=== PATIENT | male | born 1965 | race Caucasian/White ===

== ENCOUNTER 2016-09-10 18:18 | Emergency (ER) | payer MEDICAID ==
[~2016-09-10] VITALS: Ht 182.9 cm; Wt 122.8 kg
[~2016-09-10 18:18] MED LIST: ALPR0.254 PO; ALPR2TAB2 PO; AMLO5TAB2 PO; CIPR500T87 PO; DAPT500V6 IV; DOXY100T PO; ESOM40CA PO; FOLI-17 PO; FURO40TA6 PO; INSU100V8 SQ; LACT10SO5 PO; LACT20SO13 PO; LISI-170 PO; LORA-445 PO; MAGN400T7 PO; METR500T PO; MILK500C PO; OXYC10TA32 PO; OXYC15TA PO; OXYC5TAB3 PO; RIFA550T PO; SPIR25TA3 PO; SPIR50TA PO; UBID1CAP24 PO; VIT E PO
[2016-09-10] MEDS ORDERED: SODIUM CHLORIDE FLUSH 10ML SYR IVF ONE (19:00)
[2016-09-10] MEDS ORDERED: ONDANSETRON 2MG/ML, 2ML IVPush ONE (19:00)
[2016-09-10 19:16] LABS: BLOOD UREA NITROGEN 10 mg/dL (7-18)
[2016-09-10 19:20] LABS: ASPARTATE AMINO TRANSFERASE 70 U/L (15-37)
[2016-09-10 19:36] LABS: ANISOCYTOSIS 1+
[2016-09-10 19:37] LABS: HYPOCHROMIA 1+; OVALOCYTES 1+; POLYCHROMASIA 1+
[2016-09-10] MEDS ORDERED: ONDANSETRON 2MG/ML, 2ML ONE (19:39)
[2016-09-10] MEDS ORDERED: HYDROmorphone 1 MG/ML, 1ML ONE ×2 (19:39→20:38)
[2016-09-10] MEDS: HYDROmorphone 1 MG/ML, 1ML IVPush PRN ×2 (19:55→20:40)
[2016-09-10] MEDS ORDERED: MILK150C2 PO (19:59)
[2016-09-10] MEDS ORDERED: VITA200C7 PO (19:59)
[2016-09-10 21:43] VITALS: BP 122/85
== END 2016-09-10 21:45 | disposition home or self-care (01) ==
LOC: ED 21:08
DX: K40.90 Unilateral inguinal hernia, without obstruction or gangrene, not specified as recurrent (principal); K70.31 Alcoholic cirrhosis of liver with ascites; I10 Essential (primary) hypertension; E11.9 Type 2 diabetes mellitus without complications
CPT/HCPCS: 36415; 76705; 80053; 85025; 85610; 85730; 96374; 96375; 96376; 99285; J1170; J2405

== ENCOUNTER 2016-11-16 20:38 | Emergency (ER) | payer MEDICAID ==
[~2016-11-16] VITALS: Ht 182.9 cm; Wt 113.0 kg
[~2016-11-16 20:38] MED LIST changes: +MILK150C2 PO; +VITA200C7 PO
[2016-11-16] MEDS ORDERED: SODIUM CHLORIDE FLUSH 10ML SYR IVF ONE (21:00)
[2016-11-16 21:21] LABS: ASPARTATE AMINO TRANSFERASE 69 U/L (15-37); BLOOD UREA NITROGEN 8 mg/dL (7-18)
[2016-11-16] MEDS ORDERED: ONDANSETRON 2MG/ML, 2ML ONE (21:40)
[2016-11-16] MEDS ORDERED: LIDOCAINE 1%, 20ML ONE (21:54)
[2016-11-16] MEDS ORDERED: ONDANSETRON 2MG/ML, 2ML IVPush ONE (22:00)
[2016-11-16 23:01] VITALS: BP 148/90
== END 2016-11-16 23:32 | disposition home or self-care (01) ==
LOC: ED 23:00
DX: Z76.0 Encounter for issue of repeat prescription (principal); R06.00 Dyspnea, unspecified; K70.31 Alcoholic cirrhosis of liver with ascites; I10 Essential (primary) hypertension; E11.9 Type 2 diabetes mellitus without complications; K21.9 Gastro-esophageal reflux disease without esophagitis; B19.20 Unspecified viral hepatitis C without hepatic coma; Z88.8 Allergy status to other drugs, medicaments and biological substances; Z79.899 Other long term (current) drug therapy
CPT/HCPCS: 36415; 49083; 71010; 80053; 83880; 85025; 85610; 85730; 93005; 96374; 99285; J2405; J3490

== ENCOUNTER 2017-01-01 20:14 | Inpatient (IN) | payer MEDICAID ==
[~2017-01-01] VITALS: Ht 182.9 cm; Wt 114.1 kg
[~2017-01-01 20:14] MED LIST changes: -OXYC10TA32 PO; +OXYC10TA47 PO; -RIFA550T PO; +RIFA550T4 PO; -UBID1CAP24 PO; +UBID1CAP43 PO
[2017-01-01] MEDS ORDERED: FUROSEMIDE 40 MG/4 ML IV ONE (21:30)
[2017-01-01 21:50] LABS: HEMATOCRIT 40.2 % (39.2-51.8); HEMOGLOBIN 12.9 g/dL (13.7-18.0); WHITE BLOOD COUNT 4.6 x10^3/uL (3.4-10)
[2017-01-01 21:53] LABS: ASPARTATE AMINO TRANSFERASE 64 U/L (15-37); BLOOD UREA NITROGEN 9 mg/dL (7-18)
[2017-01-01] MEDS ORDERED: FUROSEMIDE 40 MG/4 ML ONE (22:21)
[2017-01-01] MEDS ORDERED: LIDOCAINE 1%, 20ML ONE (22:28)
[2017-01-02] MEDS ORDERED: ONDANSETRON 2MG/ML, 2ML IVPush PRN (01:00)
[2017-01-02] MEDS ORDERED: ONDANSETRON ODT 4 MG PO PRN (01:00)
[2017-01-02] MEDS ORDERED: LABETALOL 5MG/ML, 20ML IVPush PRN (01:00)
[2017-01-02] MEDS: HEPARIN 5,000 UNITS/ML, 1ML SQ SCH ×3 (02:12→16:55)
[2017-01-02 02:22] VITALS: BP 119/74
[2017-01-02] MEDS: ALBUMIN HUMAN 25% 100 ML IV SCH ×3 (02:50→19:00)
[2017-01-02 06:57] VITALS: BP 130/90
[2017-01-02] MEDS: SENNA/DOCUSATE TABLET PO SCH (09:00)
[2017-01-02] MEDS: LACTULOSE 10 GM/15 ML UDC PO SCH ×2 (09:00→21:12)
[2017-01-02] MEDS ORDERED: FUROSEMIDE 40 MG/4 ML IV SCH (09:00)
[2017-01-02] MEDS: SPIRONOLACTONE 50 MG TABLET PO SCH ×2 (09:05→21:12)
[2017-01-02 14:19] VITALS: BP 112/74
[2017-01-02] MEDS ORDERED: ALBUMIN HUMAN 25% 100 ML IV ONE (16:00)
[2017-01-02 19:55] VITALS: BP 113/70
[2017-01-02] MEDS: OXYcodone IR 5MG TABLET PO PRN (21:10)
[2017-01-02] MEDS: FUROSEMIDE 40 MG/4 ML IV SCH (21:13)
[2017-01-03] MEDS: HEPARIN 5,000 UNITS/ML, 1ML SQ SCH ×3 (01:00→16:07)
[2017-01-03 01:34] VITALS: BP 116/67
[2017-01-03] MEDS: ALBUMIN HUMAN 25% 100 ML IV SCH ×2 (03:33→11:56)
[2017-01-03 05:18] LABS: HEMATOCRIT 37.5 % (39.2-51.8); HEMOGLOBIN 12.2 g/dL (13.7-18.0)
[2017-01-03 05:59] LABS: ASPARTATE AMINO TRANSFERASE 50 U/L (15-37); BLOOD UREA NITROGEN 13 mg/dL (7-18); TOTAL IRON BINDING CAPACITY 275 mcg/dL (250-450)
[2017-01-03] MEDS: LACTULOSE 10 GM/15 ML UDC PO SCH ×2 (08:50→21:00)
[2017-01-03] MEDS: FUROSEMIDE 40 MG/4 ML IV SCH (08:50)
[2017-01-03] MEDS: SPIRONOLACTONE 50 MG TABLET PO SCH ×2 (08:50→22:20)
[2017-01-03] MEDS: SENNA/DOCUSATE TABLET PO SCH (08:50)
[2017-01-03 09:09] VITALS: BP 117/74
[2017-01-03] MEDS: OXYcodone IR 5MG TABLET PO PRN ×2 (11:56→20:55)
[2017-01-03 13:47] VITALS: BP 121/73
[2017-01-03 19:24] VITALS: BP 118/76
[2017-01-04] MEDS: HEPARIN 5,000 UNITS/ML, 1ML SQ SCH ×4 (01:00→23:16)
[2017-01-04 01:49] VITALS: BP 117/77
[2017-01-04] MEDS: OXYcodone IR 5MG TABLET PO PRN ×3 (04:42→23:20)
[2017-01-04 05:06] LABS: HEMATOCRIT 37.9 % (39.2-51.8); HEMOGLOBIN 12.1 g/dL (13.7-18.0); WHITE BLOOD COUNT 3.8 x10^3/uL (3.4-10)
[2017-01-04 05:10] LABS: BLOOD UREA NITROGEN 15 mg/dL (7-18)
[2017-01-04 05:13] LABS: ASPARTATE AMINO TRANSFERASE 49 U/L (15-37)
[2017-01-04] MEDS: SENNA/DOCUSATE TABLET PO SCH (07:34)
[2017-01-04] MEDS: LACTULOSE 10 GM/15 ML UDC PO SCH ×2 (07:34→21:00)
[2017-01-04 07:35] VITALS: BP 120/76
[2017-01-04] MEDS: FUROSEMIDE 40 MG TABLET PO SCH (09:12)
[2017-01-04] MEDS: SPIRONOLACTONE 50 MG TABLET PO SCH ×2 (09:12→23:20)
[2017-01-04] MEDS: IRON SUCROSE COMPLEX 100MG/5ML IV SCH (09:12)
[2017-01-04 13:38] VITALS: BP 112/71
[2017-01-04] MEDS ORDERED: LIDOCAINE 2%, 20ML ONE (15:08)
[2017-01-04 20:22] VITALS: BP 116/71
[2017-01-05 08:17] LABS: ASPARTATE AMINO TRANSFERASE 63 U/L (15-37); BLOOD UREA NITROGEN 15 mg/dL (7-18)
[2017-01-05 08:19] LABS: HEMOGLOBIN 12.9 g/dL (13.7-18.0); WHITE BLOOD COUNT 4.3 x10^3/uL (3.4-10)
[2017-01-05 08:25] VITALS: BP 105/64
[2017-01-05] MEDS: HEPARIN 5,000 UNITS/ML, 1ML SQ SCH ×2 (09:00→17:00)
[2017-01-05] MEDS: LACTULOSE 10 GM/15 ML UDC PO SCH ×2 (09:00→20:57)
[2017-01-05] MEDS: SENNA/DOCUSATE TABLET PO SCH (09:00)
[2017-01-05] MEDS: SPIRONOLACTONE 50 MG TABLET PO SCH ×2 (10:21→20:56)
[2017-01-05] MEDS: IRON SUCROSE COMPLEX 100MG/5ML IV SCH (10:21)
[2017-01-05] MEDS: FUROSEMIDE 40 MG TABLET PO SCH (10:21)
[2017-01-05 13:05] VITALS: BP 116/72
[2017-01-05] MEDS ORDERED: FUROSEMIDE 40 MG/4 ML IV ONE (15:30)
[2017-01-05] MEDS: OXYcodone IR 5MG TABLET PO PRN (16:51)
[2017-01-05] MEDS: ALBUMIN HUMAN 25% 100 ML IV SCH ×2 (16:52→23:51)
[2017-01-05 22:04] VITALS: BP 106/69
[2017-01-06] MEDS: HEPARIN 5,000 UNITS/ML, 1ML SQ SCH ×3 (01:00→17:00)
[2017-01-06] MEDS: FUROSEMIDE 20 MG/2 ML IV SCH ×3 (01:35→16:00)
[2017-01-06 04:06] VITALS: BP 110/67
[2017-01-06 05:11] LABS: HEMATOCRIT 36.6 % (39.2-51.8); HEMOGLOBIN 11.8 g/dL (13.7-18.0); WHITE BLOOD COUNT 3.6 x10^3/uL (3.4-10)
[2017-01-06 05:28] LABS: ASPARTATE AMINO TRANSFERASE 48 U/L (15-37); BLOOD UREA NITROGEN 16 mg/dL (7-18)
[2017-01-06 08:31] VITALS: BP 136/88
[2017-01-06] MEDS: LACTULOSE 10 GM/15 ML UDC PO SCH (09:00)
[2017-01-06] MEDS: SENNA/DOCUSATE TABLET PO SCH (09:00)
[2017-01-06] MEDS: OXYcodone IR 5MG TABLET PO PRN ×2 (10:11→15:49)
[2017-01-06] MEDS: IRON SUCROSE COMPLEX 100MG/5ML IV SCH (10:12)
[2017-01-06] MEDS: ALBUMIN HUMAN 25% 100 ML IV SCH ×2 (10:12→15:49)
[2017-01-06] MEDS: SPIRONOLACTONE 50 MG TABLET PO SCH (10:12)
[2017-01-06 17:16] VITALS: BP 133/65
== END 2017-01-06 17:30 | disposition home or self-care (01) | DRG 432 ==
LOC: ED 21:03 → EDIP 01-02 00:33 → 4NOR 01-02 01:15
PROVIDERS: ADMIT Hospitalist; ATTEND Hospitalist
PROC: 0W9G3ZZ Drainage of Peritoneal Cavity, Percutaneous Approach (ICD-10-PCS; principal; 2017-01-02)
DX: K74.60 Unspecified cirrhosis of liver (principal); E43 Unspecified severe protein-calorie malnutrition; R18.8 Other ascites; D68.9 Coagulation defect, unspecified; K76.6 Portal hypertension; E11.65 Type 2 diabetes mellitus with hyperglycemia; E87.1 Hypo-osmolality and hyponatremia; J98.11 Atelectasis; D69.59 Other secondary thrombocytopenia; B19.20 Unspecified viral hepatitis C without hepatic coma; D53.9 Nutritional anemia, unspecified; D75.89 Other specified diseases of blood and blood-forming organs; F12.90 Cannabis use, unspecified, uncomplicated; M54.9 Dorsalgia, unspecified; G89.29 Other chronic pain; I10 Essential (primary) hypertension; K21.9 Gastro-esophageal reflux disease without esophagitis; N43.3 Hydrocele, unspecified; N50.89 Other specified disorders of the male genital organs; Z66 Do not resuscitate; Z80.41 Family history of malignant neoplasm of ovary; Z68.34 Body mass index [BMI] 34.0-34.9, adult; Z83.3 Family history of diabetes mellitus; Z85.828 Personal history of other malignant neoplasm of skin
CPT/HCPCS: 36415; 49083; 74022; 76870; 80053; 82140; 82306; 82607; 82728; 82746; 83540; 83550; 83690; 84439; 84443; 85025; 85610; 93005; 96374; J1756; J1940; J3490; P9047

== ENCOUNTER 2017-01-15 22:38 | Emergency (ER) | payer MEDICAID ==
[~2017-01-15] VITALS: Ht 182.9 cm; Wt 113.3 kg
[2017-01-15] MEDS ORDERED: SODIUM CHLORIDE FLUSH 10ML SYR IVF ONE (23:30)
[2017-01-16 01:07] VITALS: BP 135/90
== END 2017-01-16 01:51 | disposition home or self-care (01) ==
LOC: ED 23:18
DX: R10.84 Generalized abdominal pain (principal); K70.31 Alcoholic cirrhosis of liver with ascites; K21.9 Gastro-esophageal reflux disease without esophagitis; I10 Essential (primary) hypertension; E11.9 Type 2 diabetes mellitus without complications; G89.29 Other chronic pain
CPT/HCPCS: 49083; 93005; 99284

== ENCOUNTER 2017-02-23 20:45 | Emergency (ER) | payer MEDICAID ==
[~2017-02-23] VITALS: Ht 177.8 cm; Wt 130.5 kg
[2017-02-23] MEDS ORDERED: ONDANSETRON 2MG/ML, 2ML IVPush ONE (22:30)
[2017-02-23] MEDS ORDERED: MORPHINE SULFATE 4 MG/ML, 1ML IVPush PRN (22:30)
[2017-02-23] MEDS ORDERED: SODIUM CHLORIDE FLUSH 10ML SYR IVF ONE (22:30)
[2017-02-23] MEDS ORDERED: ONDANSETRON 2MG/ML, 2ML ONE (22:35)
[2017-02-23] MEDS ORDERED: morphine SULFATE 10 MG/ML, 1ML ONE (22:35)
[2017-02-23 22:42] LABS: HEMATOCRIT 40.3 % (39.2-51.8); HEMOGLOBIN 13.4 g/dL (13.7-18.0); WHITE BLOOD COUNT 7.8 x10^3/uL (3.4-10)
[2017-02-23 22:50] LABS: ASPARTATE AMINO TRANSFERASE 68 U/L (15-37); BLOOD UREA NITROGEN 9 mg/dL (7-18)
[2017-02-24] MEDS ORDERED: LIDOCAINE 1%, 20ML INFIL ONE (01:00)
[2017-02-24] MEDS ORDERED: LIDOCAINE 1%, 20ML ONE (01:20)
[2017-02-24] MEDS ORDERED: ONDANSETRON 2MG/ML, 2ML ONE (02:34)
[2017-02-24 04:05] VITALS: BP 137/89
== END 2017-02-24 04:17 | disposition home or self-care (01) ==
LOC: ED 22:18
DX: K76.89 Other specified diseases of liver (principal); D68.4 Acquired coagulation factor deficiency; D69.6 Thrombocytopenia, unspecified; R18.8 Other ascites; E11.65 Type 2 diabetes mellitus with hyperglycemia; K21.9 Gastro-esophageal reflux disease without esophagitis
CPT/HCPCS: 36415; 49083; 71010; 80053; 81001; 83690; 83880; 85025; 85610; 85730; 87086; 96374; 96375; 99285; J2405

== ENCOUNTER 2017-03-29 15:49 | Emergency (ER) | payer MEDICAID ==
[~2017-03-29] VITALS: Ht 182.9 cm; Wt 126.4 kg
[2017-03-29] MEDS ORDERED: SPIR25TA3 PO (16:13)
[2017-03-29] MEDS ORDERED: POTA25TA4 PO (16:14)
[2017-03-29] MEDS ORDERED: LIDOCAINE 2%, 20ML ONE (16:36)
[2017-03-29] MEDS ORDERED: HYDROmorphone 1 MG/ML, 1ML IVPush ONE (17:00)
[2017-03-29] MEDS ORDERED: HYDROmorphone 1 MG/ML, 1ML ONE (17:02)
[2017-03-29 17:59] VITALS: BP 129/79
== END 2017-03-29 18:46 | disposition home or self-care (01) ==
LOC: ED 16:39
DX: K70.31 Alcoholic cirrhosis of liver with ascites (principal); E11.9 Type 2 diabetes mellitus without complications; I10 Essential (primary) hypertension; K21.9 Gastro-esophageal reflux disease without esophagitis
CPT/HCPCS: 49083; 96374; 99284; J1170; J3490

== ENCOUNTER 2017-04-07 21:51 | Emergency (ER) | payer MEDICAID ==
[~2017-04-07] VITALS: Ht 182.9 cm; Wt 127.9 kg
[~2017-04-07 21:51] MED LIST changes: +POTA25TA4 PO
[2017-04-07 23:10] LABS: ASPARTATE AMINO TRANSFERASE 66 U/L (15-37); BLOOD UREA NITROGEN 9 mg/dL (7-18)
[2017-04-07 23:15] LABS: HEMATOCRIT 37.5 % (39.2-51.8); HEMOGLOBIN 12.7 g/dL (13.7-18.0); WHITE BLOOD COUNT 4.2 x10^3/uL (3.4-10)
[2017-04-08] MEDS ORDERED: HYDROmorphone 1 MG/ML, 1ML IM ONE
[2017-04-08] MEDS ORDERED: KETOROLAC 30 MG/1 ML IM ONE
[2017-04-08] MEDS ORDERED: HYDROmorphone 1 MG/ML, 1ML ONE (00:10)
[2017-04-08] MEDS ORDERED: KETOROLAC 30 MG/1 ML ONE (00:11)
[2017-04-08 01:59] VITALS: BP 122/84
[2017-04-08] MEDS ORDERED: SULFAMETH./TRIMETHOPRIM DS 800MG/160MG TABLET PO ONE (03:30)
== END 2017-04-08 04:01 | disposition home or self-care (01) ==
LOC: ED 23:36
DX: N49.2 Inflammatory disorders of scrotum (principal); N43.3 Hydrocele, unspecified; D69.6 Thrombocytopenia, unspecified; E11.9 Type 2 diabetes mellitus without complications; I10 Essential (primary) hypertension; K21.9 Gastro-esophageal reflux disease without esophagitis
CPT/HCPCS: 36415; 76870; 80053; 83605; 85025; 87040; 87077; 96372; 99285; J1170; J1885; 87186

== ENCOUNTER 2017-04-08 21:30 | Inpatient (IN) | payer MEDICAID ==
[~2017-04-08] VITALS: Ht 182.9 cm; Wt 124.0 kg
[2017-04-08] MEDS ORDERED: AMPICILLIN/SULBACTAM 3 GM in SODIUM CHLORIDE 0.9% 100 ML IV ONE (22:30)
[2017-04-08] MEDS ORDERED: VANCOMYCIN 2,500 MG in SODIUM CHLORIDE 0.9% 500 ML IV ONE (23:00)
[2017-04-08] MEDS ORDERED: VANCOMYCIN PER PHARMACY MC PRN (23:00)
[2017-04-08 23:08] LABS: HEMOGLOBIN 12.5 g/dL (13.7-18.0); WHITE BLOOD COUNT 4.5 x10^3/uL (3.4-10)
[2017-04-08 23:15] LABS: ASPARTATE AMINO TRANSFERASE 67 U/L (15-37); BLOOD UREA NITROGEN 13 mg/dL (7-18)
[2017-04-09] MEDS ORDERED: VANCOMYCIN PER PHARMACY MC PRN
[2017-04-09] MEDS ORDERED: POLYETHYLENE GLYCOL 17 GM PACKET PO PRN
[2017-04-09] MEDS ORDERED: PHARMACOKINETIC MONITORING MC PRN (01:30)
[2017-04-09] MEDS: OXYcodone IR 5MG TABLET PO PRN ×5 (02:02→20:36)
[2017-04-09 05:27] LABS: HEMATOCRIT 36.4 % (39.2-51.8); HEMOGLOBIN 12.4 g/dL (13.7-18.0); WHITE BLOOD COUNT 4.6 x10^3/uL (3.4-10)
[2017-04-09 05:50] LABS: BLOOD UREA NITROGEN 12 mg/dL (7-18)
[2017-04-09] MEDS: AMPICILLIN/SULBACTAM 3 GM in SODIUM CHLORIDE 0.9% 100 ML IV SCH ×3 (06:18→22:39)
[2017-04-09 06:32] LABS: DIFF TOTAL CELLS COUNTED 100 CELL DIFF
[2017-04-09 06:35] LABS: VERIFY COUNTS? YES
[2017-04-09 06:37] LABS: ANISOCYTOSIS 1+; OVALOCYTES 2+
[2017-04-09] MEDS ORDERED: MILK THISTLE 150 MG PO SCH (09:00)
[2017-04-09] MEDS: VITAMIN E ACETATE HOMEMEDPO SCH (09:00)
[2017-04-09] MEDS: SPIRONOLACTONE 50 MG TABLET PO SCH ×3 (09:00→20:35)
[2017-04-09] MEDS: ENOXAPARIN 40 MG/0.4 ML SQ SCH (09:00)
[2017-04-09 09:55] VITALS: BP 104/68
[2017-04-09] MEDS: FUROSEMIDE 40 MG TABLET PO SCH (10:52)
[2017-04-09] MEDS: K-LYTE 25 MEQ TABLET.EFF PO SCH (10:52)
[2017-04-09] MEDS: ONDANSETRON ODT 4 MG PO PRN (15:01)
[2017-04-09] MEDS: VANCOMYCIN 2,500 MG in SODIUM CHLORIDE 0.9% 500 ML IV SCH ×2 (16:17→19:30)
[2017-04-09 19:13] VITALS: BP 138/90
[2017-04-09] MEDS: DIPHENHYDRAMINE 25 MG CAPSULE PO PRN (20:36)
[2017-04-10 01:41] VITALS: BP 123/69
[2017-04-10 04:12] LABS: BLOOD UREA NITROGEN 12 mg/dL (7-18)
[2017-04-10 04:39] LABS: HEMATOCRIT 35.6 % (39.2-51.8); WHITE BLOOD COUNT 3.5 x10^3/uL (3.4-10)
[2017-04-10] MEDS: AMPICILLIN/SULBACTAM 3 GM in SODIUM CHLORIDE 0.9% 100 ML IV SCH (06:14)
[2017-04-10] MEDS: VANCOMYCIN 2,500 MG in SODIUM CHLORIDE 0.9% 500 ML IV SCH ×2 (08:08→20:11)
[2017-04-10] MEDS: SPIRONOLACTONE 50 MG TABLET PO SCH ×2 (08:09→20:09)
[2017-04-10] MEDS: K-LYTE 25 MEQ TABLET.EFF PO SCH (08:10)
[2017-04-10] MEDS: FUROSEMIDE 40 MG TABLET PO SCH (08:10)
[2017-04-10] MEDS: ENOXAPARIN 40 MG/0.4 ML SQ SCH (08:11)
[2017-04-10] MEDS: ONDANSETRON ODT 4 MG PO PRN (08:19)
[2017-04-10] MEDS: VITAMIN E ACETATE HOMEMEDPO SCH (09:00)
[2017-04-10] MEDS: BUMETANIDE 0.25 MG/ML, 4ML IV SCH (13:00)
[2017-04-10] MEDS ORDERED: ALBUMIN HUMAN 25% 50 ML IV ONE (13:00)
[2017-04-10 13:24] VITALS: BP 115/72
[2017-04-10] MEDS ORDERED: AMPICILLIN/SULBACTAM 3 GM in SODIUM CHLORIDE 0.9% 100 ML IV SCH (14:00)
[2017-04-10] MEDS: CEFTRIAXONE PMX 1GM/50ML 50 ML IV SCH (14:38)
[2017-04-10] MEDS: OXYcodone IR 5MG TABLET PO PRN ×2 (15:32→20:23)
[2017-04-10] MEDS: MAGNESIUM OXIDE 400 MG TABLET PO SCH (20:10)
[2017-04-10 20:16] VITALS: BP 107/76
[2017-04-11] MEDS: OXYcodone IR 5MG TABLET PO PRN ×4 (00:52→23:33)
[2017-04-11] MEDS: DIPHENHYDRAMINE 25 MG CAPSULE PO PRN ×2 (00:52→08:30)
[2017-04-11 02:20] VITALS: BP 127/86
[2017-04-11] MEDS: VANCOMYCIN 2,500 MG in SODIUM CHLORIDE 0.9% 500 ML IV SCH (07:24)
[2017-04-11 08:16] VITALS: BP 133/84
[2017-04-11] MEDS: ENOXAPARIN 40 MG/0.4 ML SQ SCH ×2 (08:31→08:41)
[2017-04-11] MEDS: MAGNESIUM OXIDE 400 MG TABLET PO SCH ×2 (08:31→23:33)
[2017-04-11] MEDS: SPIRONOLACTONE 50 MG TABLET PO SCH ×2 (08:31→21:00)
[2017-04-11] MEDS: BUMETANIDE 0.25 MG/ML, 4ML IV SCH ×3 (08:32→20:00)
[2017-04-11] MEDS: VITAMIN E ACETATE HOMEMEDPO SCH (08:33)
[2017-04-11] MEDS: K-LYTE 25 MEQ TABLET.EFF PO SCH (08:33)
[2017-04-11] MEDS: ALBUMIN HUMAN 25% 50 ML IV SCH ×2 (12:13→19:59)
[2017-04-11] MEDS: CEFTRIAXONE PMX 1GM/50ML 50 ML IV SCH (13:38)
[2017-04-11 14:16] VITALS: BP 125/76
[2017-04-12 02:01] VITALS: BP 115/85
[2017-04-12] MEDS: BUMETANIDE 0.25 MG/ML, 4ML IV SCH (03:00)
[2017-04-12] MEDS: ALBUMIN HUMAN 25% 50 ML IV SCH (03:19)
[2017-04-12] MEDS: DIPHENHYDRAMINE 25 MG CAPSULE PO PRN ×3 (03:30→21:13)
[2017-04-12] MEDS: OXYcodone IR 5MG TABLET PO PRN ×4 (03:30→21:13)
[2017-04-12 06:12] LABS: HEMATOCRIT 33.8 % (39.2-51.8); HEMOGLOBIN 11.4 g/dL (13.7-18.0)
[2017-04-12 06:21] LABS: ASPARTATE AMINO TRANSFERASE 48 U/L (15-37); BLOOD UREA NITROGEN 11 mg/dL (7-18)
[2017-04-12] MEDS ORDERED: MAGNESIUM SULFATE PMX 2GM/50ML 50 ML IV ONE (07:00)
[2017-04-12] MEDS ORDERED: POTASSIUM CHLORIDE 20 MEQ TAB.ER.PRT PO ONE (07:00)
[2017-04-12] MEDS ORDERED: ALBUMIN HUMAN 25% 50 ML IV ONE (07:00)
[2017-04-12] MEDS: ENOXAPARIN 40 MG/0.4 ML SQ SCH ×2 (07:52→07:58)
[2017-04-12] MEDS: FUROSEMIDE 40 MG TABLET PO SCH (07:52)
[2017-04-12] MEDS: SPIRONOLACTONE 50 MG TABLET PO SCH (07:52)
[2017-04-12] MEDS: MAGNESIUM OXIDE 400 MG TABLET PO SCH ×2 (07:52→21:13)
[2017-04-12] MEDS: VITAMIN E ACETATE HOMEMEDPO SCH (07:58)
[2017-04-12 09:20] VITALS: BP 105/70
[2017-04-12] MEDS: CEFTRIAXONE PMX 1GM/50ML 50 ML IV SCH (13:17)
[2017-04-12] MEDS ORDERED: LIDOCAINE 2%, 20ML ONE (13:24)
[2017-04-12 15:55] VITALS: BP 121/79
[2017-04-12 20:08] VITALS: BP 120/74
[2017-04-13 01:16] VITALS: BP 115/74
[2017-04-13 06:21] LABS: BLOOD UREA NITROGEN 9 mg/dL (7-18)
[2017-04-13] MEDS: DIPHENHYDRAMINE 25 MG CAPSULE PO PRN ×3 (07:42→21:46)
[2017-04-13] MEDS: OXYcodone IR 5MG TABLET PO PRN ×3 (07:42→21:46)
[2017-04-13] MEDS: FUROSEMIDE 40 MG TABLET PO SCH (07:42)
[2017-04-13] MEDS: MAGNESIUM OXIDE 400 MG TABLET PO SCH ×2 (07:43→21:46)
[2017-04-13] MEDS: ENOXAPARIN 40 MG/0.4 ML SQ SCH ×2 (07:43→07:47)
[2017-04-13] MEDS: SPIRONOLACTONE 50 MG TABLET PO SCH (07:43)
[2017-04-13] MEDS: VITAMIN E ACETATE HOMEMEDPO SCH (07:43)
[2017-04-13 07:44] VITALS: BP 118/84
[2017-04-13] MEDS ORDERED: POTASSIUM CHLORIDE 20 MEQ TAB.ER.PRT PO ONE (12:00)
[2017-04-13] MEDS ORDERED: MAGNESIUM SULFATE PMX 4GM/100M 100 ML IV ONE (12:00)
[2017-04-13] MEDS: CEFTRIAXONE PMX 1GM/50ML 50 ML IV SCH (12:17)
[2017-04-13 13:38] VITALS: BP 109/70
[2017-04-13] MEDS ORDERED: LIDOCAINE 2%, 20ML ONE (14:48)
[2017-04-13 19:56] VITALS: BP 116/73
[2017-04-14 01:11] VITALS: BP 134/70
[2017-04-14] MEDS: OXYcodone IR 5MG TABLET PO PRN ×4 (02:13→18:41)
[2017-04-14] MEDS: DIPHENHYDRAMINE 25 MG CAPSULE PO PRN (06:43)
[2017-04-14 07:35] VITALS: BP 121/79
[2017-04-14 07:53] LABS: BLOOD UREA NITROGEN 10 mg/dL (7-18)
[2017-04-14 07:56] LABS: ASPARTATE AMINO TRANSFERASE 65 U/L (15-37)
[2017-04-14] MEDS: VITAMIN E ACETATE HOMEMEDPO SCH (09:00)
[2017-04-14] MEDS: ENOXAPARIN 40 MG/0.4 ML SQ SCH (09:00)
[2017-04-14] MEDS: FUROSEMIDE 40 MG TABLET PO SCH (09:16)
[2017-04-14] MEDS: MAGNESIUM OXIDE 400 MG TABLET PO SCH ×2 (09:17→20:09)
[2017-04-14] MEDS: SPIRONOLACTONE 50 MG TABLET PO SCH (09:17)
[2017-04-14] MEDS ORDERED: MAGNESIUM SULFATE PMX 2GM/50ML 50 ML IV ONE (12:30)
[2017-04-14] MEDS: CEFTRIAXONE PMX 1GM/50ML 50 ML IV SCH (13:40)
[2017-04-14 13:58] VITALS: BP 115/74
[2017-04-14] MEDS: ALBUMIN HUMAN 25% 100 ML IV SCH ×2 (14:28→20:11)
[2017-04-14] MEDS: TRIAMCINOLONE CRM 0.1%, 15GM TP PRN (16:28)
[2017-04-14] MEDS: FUROSEMIDE 40 MG/4 ML IV SCH (18:41)
[2017-04-14] MEDS ORDERED: POTASSIUM CHLORIDE 20 MEQ TAB.ER.PRT PO ONE (19:30)
[2017-04-14] MEDS ORDERED: MAGNESIUM SULFATE PMX 4GM/100M 100 ML IV ONE (19:30)
[2017-04-14 19:51] VITALS: BP 124/71
[2017-04-14] MEDS: POTASSIUM CHLORIDE 20 MEQ TAB.ER.PRT PO ONE (21:57)
[2017-04-14] MEDS: TEMAZEPAM 15 MG CAPSULE PO PRN (22:43)
[2017-04-15] MEDS: FUROSEMIDE 40 MG/4 ML IV SCH ×4 (00:07→18:37)
[2017-04-15] MEDS: OXYcodone IR 5MG TABLET PO PRN ×5 (00:07→20:33)
[2017-04-15] MEDS: POTASSIUM CHLORIDE 20 MEQ TAB.ER.PRT PO ONE (00:08)
[2017-04-15 00:56] VITALS: BP 137/89
[2017-04-15] MEDS: ALBUMIN HUMAN 25% 100 ML IV SCH ×3 (02:21→18:38)
[2017-04-15 06:06] VITALS: BP 116/73
[2017-04-15 06:21] LABS: BLOOD UREA NITROGEN 12 mg/dL (7-18)
[2017-04-15] MEDS: VITAMIN E ACETATE HOMEMEDPO SCH (07:44)
[2017-04-15] MEDS: ENOXAPARIN 40 MG/0.4 ML SQ SCH (07:44)
[2017-04-15] MEDS: MAGNESIUM OXIDE 400 MG TABLET PO SCH ×2 (08:24→20:33)
[2017-04-15] MEDS: AcetaZOLAMIDE ER 500 MG CAPSULE PO SCH ×2 (10:20→20:33)
[2017-04-15] MEDS: TRIAMCINOLONE CRM 0.1%, 15GM TP PRN (13:19)
[2017-04-15] MEDS: CEFTRIAXONE PMX 1GM/50ML 50 ML IV SCH (13:19)
[2017-04-15 14:30] VITALS: BP 108/59
[2017-04-15 20:36] VITALS: BP 103/63
[2017-04-16] MEDS: ALBUMIN HUMAN 25% 100 ML IV SCH ×4 (00:35→18:34)
[2017-04-16 00:41] VITALS: BP 117/70
[2017-04-16] MEDS: FUROSEMIDE 40 MG/4 ML IV SCH ×4 (02:32→20:48)
[2017-04-16] MEDS: TEMAZEPAM 15 MG CAPSULE PO PRN (03:28)
[2017-04-16 06:41] LABS: BLOOD UREA NITROGEN 18 mg/dL (7-18)
[2017-04-16 07:36] VITALS: BP 113/69
[2017-04-16] MEDS: VITAMIN E ACETATE HOMEMEDPO SCH (08:24)
[2017-04-16] MEDS: ENOXAPARIN 40 MG/0.4 ML SQ SCH (09:00)
[2017-04-16] MEDS: POTASSIUM CHLORIDE 20 MEQ TAB.ER.PRT PO SCH ×2 (09:26→14:47)
[2017-04-16] MEDS: MAGNESIUM CHLORIDE 64 MG TABLET.DR PO SCH ×2 (09:26→20:47)
[2017-04-16] MEDS: AcetaZOLAMIDE ER 500 MG CAPSULE PO SCH ×2 (09:26→20:48)
[2017-04-16] MEDS: OXYcodone IR 5MG TABLET PO PRN (09:37)
[2017-04-16 14:44] VITALS: BP 110/66
[2017-04-16] MEDS: CEFTRIAXONE PMX 1GM/50ML 50 ML IV SCH (14:47)
[2017-04-16 20:46] VITALS: BP 102/64
[2017-04-17] MEDS: ALBUMIN HUMAN 25% 100 ML IV SCH ×5 (00:33→18:06)
[2017-04-17 00:37] VITALS: BP 118/68
[2017-04-17] MEDS: FUROSEMIDE 40 MG/4 ML IV SCH ×4 (02:32→20:39)
[2017-04-17 07:25] VITALS: BP 102/61
[2017-04-17] MEDS: VITAMIN E ACETATE HOMEMEDPO SCH (08:33)
[2017-04-17] MEDS: AcetaZOLAMIDE ER 500 MG CAPSULE PO SCH (09:00)
[2017-04-17] MEDS: ENOXAPARIN 40 MG/0.4 ML SQ SCH (09:00)
[2017-04-17 09:22] VITALS: BP 98/57
[2017-04-17] MEDS: MAGNESIUM CHLORIDE 64 MG TABLET.DR PO SCH ×2 (09:23→20:36)
[2017-04-17] MEDS: OXYcodone IR 5MG TABLET PO PRN ×2 (09:24→16:37)
[2017-04-17] MEDS: POTASSIUM CHLORIDE 20 MEQ TAB.ER.PRT PO SCH ×3 (10:58→18:06)
[2017-04-17] MEDS: CEFTRIAXONE PMX 1GM/50ML 50 ML IV SCH (13:46)
[2017-04-17] MEDS: DIPHENHYDRAMINE 25 MG CAPSULE PO PRN (13:48)
[2017-04-17 14:31] VITALS: BP 113/65
[2017-04-17 20:38] VITALS: BP 121/71
[2017-04-18] MEDS: DIPHENHYDRAMINE 25 MG CAPSULE PO PRN ×2 (00:28→15:22)
[2017-04-18] MEDS: ALBUMIN HUMAN 25% 100 ML IV SCH ×3 (00:29→12:31)
[2017-04-18 01:28] VITALS: BP 116/68
[2017-04-18] MEDS: FUROSEMIDE 40 MG/4 ML IV SCH ×3 (02:42→15:21)
[2017-04-18] MEDS: TEMAZEPAM 15 MG CAPSULE PO PRN (02:49)
[2017-04-18 07:00] VITALS: BP 129/87
[2017-04-18] MEDS: ENOXAPARIN 40 MG/0.4 ML SQ SCH (09:00)
[2017-04-18] MEDS: VITAMIN E ACETATE HOMEMEDPO SCH (09:00)
[2017-04-18] MEDS: MAGNESIUM CHLORIDE 64 MG TABLET.DR PO SCH (09:06)
[2017-04-18] MEDS: CEFTRIAXONE PMX 1GM/50ML 50 ML IV SCH (12:32)
[2017-04-18] MEDS ORDERED: LIDOCAINE 1%, 20ML ONE (13:17)
[2017-04-18] MEDS: OXYcodone IR 5MG TABLET PO PRN (15:22)
== END 2017-04-18 16:48 | disposition home or self-care (01) | DRG 441 ==
LOC: ED 22:17 → EDIP 23:45 → 3NE 04-09 00:52
PROVIDERS: ADMIT Family Medicine; ATTEND Hospitalist
PROC: 0W9G3ZZ Drainage of Peritoneal Cavity, Percutaneous Approach (ICD-10-PCS; principal; 2017-04-12)
PROC: 02HV33Z Insertion of Infusion Device into Superior Vena Cava, Percutaneous Approach (ICD-10-PCS; 2017-04-13)
PROC: B5181ZA Fluoroscopy of Superior Vena Cava using Low Osmolar Contrast, Guidance (ICD-10-PCS; 2017-04-13)
PROC: 0W9G3ZZ Drainage of Peritoneal Cavity, Percutaneous Approach (ICD-10-PCS; 2017-04-13)
PROC: 0W9G3ZZ Drainage of Peritoneal Cavity, Percutaneous Approach (ICD-10-PCS; 2017-04-18)
DX: K72.90 Hepatic failure, unspecified without coma (principal); E43 Unspecified severe protein-calorie malnutrition; I85.00 Esophageal varices without bleeding; R78.81 Bacteremia; K76.6 Portal hypertension; C18.9 Malignant neoplasm of colon, unspecified; E11.65 Type 2 diabetes mellitus with hyperglycemia; E83.42 Hypomagnesemia; N49.2 Inflammatory disorders of scrotum; B19.20 Unspecified viral hepatitis C without hepatic coma; E87.70 Fluid overload, unspecified; K70.31 Alcoholic cirrhosis of liver with ascites; B95.4 Other streptococcus as the cause of diseases classified elsewhere; B96.89 Other specified bacterial agents as the cause of diseases classified elsewhere; D63.8 Anemia in other chronic diseases classified elsewhere; E66.9 Obesity, unspecified; E87.6 Hypokalemia; F10.20 Alcohol dependence, uncomplicated; K40.90 Unilateral inguinal hernia, without obstruction or gangrene, not specified as recurrent; N43.3 Hydrocele, unspecified; N50.89 Other specified disorders of the male genital organs; Z68.37 Body mass index [BMI] 37.0-37.9, adult; Z80.41 Family history of malignant neoplasm of ovary; Z83.3 Family history of diabetes mellitus
CPT/HCPCS: 36415; 36569; 49083; 76937; 77001; 80048; 80053; 80202; 82040; 82565; 83605; 83735; 84100; 84132; 85025; 87040; 96365; J0295; J0696; J1650; J1940; J3370; J3490; P9047; Q0162; C1751; J3475; J7040; Q0163

== ENCOUNTER 2017-04-24 07:59 | Inpatient (IN) | payer MEDICAID ==
[~2017-04-24] VITALS: Ht 182.9 cm; Wt 110.7 kg
[2017-04-24] MEDS ORDERED: SODIUM CHLORIDE FLUSH 10ML SYR IVF ONE (08:30)
[2017-04-24] MEDS ORDERED: SODIUM CHLORIDE 0.9% 1,000ML IVBOLUS ONE (08:30)
[2017-04-24 08:53] LABS: PH, VENOUS 7.371 pH (7.320-7.420)
[2017-04-24 09:01] LABS: ACETONE, SERUM Negative (Negative)
[2017-04-24 09:06] LABS: ALANINE AMINOTRANSFERASE 59 U/L (12-78); ALBUMIN 4.2 g/dL (3.4-5.0); ANION GAP 10 mmol/L (5-15); CALCIUM 8.8 mg/dL (8.5-10.1); CHLORIDE 103 mmol/L (98-107); CREATININE 1.49 mg/dL (0.7-1.3)
[2017-04-24 09:08] LABS: ALKALINE PHOSPHATASE 95 U/L (45-117); BILIRUBIN,TOTAL 3.9 mg/dL (0.2-1.0); TOTAL PROTEIN 8.3 g/dL (6.4-8.2)
[2017-04-24 09:33] LABS: MEAN CORPUSCULAR HEMOGLOBIN 27.7 pg (27.5-34.5); MEAN CORPUSCULAR HGB CONC 32.9 g/dL (33.2-36.2); MEAN CORPUSCULAR VOLUME 84.2 fL (81-97); MEAN PLATELET VOLUME 10.8 fL (7.4-10.4); PLATELET COUNT 98 x10^3/uL (130-400); RED CELL DISTRIBUTION WIDTH 18.5 % (9.4-14.8)
[2017-04-24 09:34] LABS: MD YES
[2017-04-24 09:37] LABS: ANISOCYTOSIS 1+; HYPOCHROMIA 1+; LYMPH#(MANUAL) 0.86 x10^3/uL (1-3.4); LYMPHS% (MANUAL) 10 % (22-44); MONOS#(MANUAL) 0.86 x10^3/uL (0.3-2.7); MONOS% (MANUAL) 10 % (2-9); OVALOCYTES 1+; SEG#(MANUAL) 6.88 x10^3/uL (1.8-6.8); SEGS% (MANUAL) 80 % (42-75)
[2017-04-24 09:38] LABS: <PLATELET ESTIMATE> DECREASED; <PLT MORPHOLOGY> NORMAL PLT MORPH; TEAR DROPS 1+
[2017-04-24] MEDS ORDERED: morphine SULFATE 10 MG/ML, 1ML IVPush ONE (10:00)
[2017-04-24] MEDS ORDERED: ONDANSETRON 2MG/ML, 2ML IVPush ONE (10:00)
[2017-04-24] MEDS ORDERED: ONDANSETRON 2MG/ML, 2ML ONE ×2 (10:01)
[2017-04-24] MEDS ORDERED: MORPHINE SULFATE 4 MG/ML, 1ML ONE (10:01)
[2017-04-24] MEDS ORDERED: POTA20PA PO (10:49)
[2017-04-24] MEDS ORDERED: AMLO2.5T PO (10:49)
[2017-04-24] MEDS ORDERED: SPIR25TA3 PO (10:49)
[2017-04-24] MEDS ORDERED: DICY10CA3 PO (10:49)
[2017-04-24] MEDS ORDERED: SODIUM CHLORIDE FLUSH 10ML SYR IVF PRN (11:00)
[2017-04-24 12:07] VITALS: BP 103/74
[2017-04-24 12:08] VITALS: BP 103/74
[2017-04-24] MEDS ORDERED: SUMATRIPTAN 50 MG TABLET PO ONE (13:00)
[2017-04-24] MEDS ORDERED: LACTULOSE 10 GM/15 ML UDC PO ONE (13:00)
[2017-04-24] MEDS ORDERED: ONDANSETRON 2MG/ML, 2ML IVPush PRN (13:00)
[2017-04-24] MEDS: CEFTRIAXONE PMX 2GM/50ML 50 ML IV SCH (13:36)
[2017-04-24] MEDS: D5%-LACTATED RINGERS 1,000 ML IV SCH ×2 (13:54→21:32)
[2017-04-24] MEDS: INSULIN REGULAR 100 UNITS/ML, 3ML VIAL SQ-INSULIN SCH ×2 (16:00→19:59)
[2017-04-24 19:04] VITALS: BP 93/62
[2017-04-24] MEDS: LACTULOSE 10 GM/15 ML UDC PO SCH (20:26)
[2017-04-24] MEDS: RIFAXIMIN 550 MG TABLET PO SCH (20:38)
[2017-04-24] MEDS: ACETAMINOPHEN 325 MG TABLET PO PRN (20:38)
[2017-04-24] MEDS: FAMOTIDINE 20 MG/2 ML IVPush SCH (20:38)
[2017-04-25 01:57] VITALS: BP 97/66
[2017-04-25] MEDS: ACETAMINOPHEN 325 MG TABLET PO PRN (02:36)
[2017-04-25] MEDS: D5%-LACTATED RINGERS 1,000 ML IV SCH ×3 (05:09→20:16)
[2017-04-25 06:22] LABS: ANION GAP 9 mmol/L (5-15); CALCIUM 8.5 mg/dL (8.5-10.1); CHLORIDE 103 mmol/L (98-107)
[2017-04-25] MEDS: INSULIN REGULAR 100 UNITS/ML, 3ML VIAL SQ-INSULIN SCH ×4 (07:00→20:11)
[2017-04-25 07:20] VITALS: BP_SYST 88; BP_SYST 94; BP_DIAS 57; BP_DIAS 67
[2017-04-25] MEDS ORDERED: SODIUM CHLORIDE 0.9% 1,000ML IVBOLUS ONE (08:30)
[2017-04-25] MEDS: RIFAXIMIN 550 MG TABLET PO SCH ×2 (08:35→20:16)
[2017-04-25] MEDS: FAMOTIDINE 20 MG/2 ML IVPush SCH ×2 (08:35→20:16)
[2017-04-25] MEDS: LACTULOSE 10 GM/15 ML UDC PO SCH ×2 (08:36→20:16)
[2017-04-25 11:58] LABS: CULTURE INDICATED? YES; MICROSCOPIC INDICATED
[2017-04-25] MEDS: CEFTRIAXONE PMX 2GM/50ML 50 ML IV SCH (13:04)
[2017-04-25 13:35] VITALS: BP 93/60
[2017-04-25 14:02] LABS: CREATININE 1.61 mg/dL (0.7-1.3)
[2017-04-25 20:44] VITALS: BP 95/59
[2017-04-25] MEDS: KETOROLAC 30 MG/1 ML IVPush PRN (21:06)
[2017-04-26 00:51] VITALS: BP 106/67
[2017-04-26] MEDS: D5%-LACTATED RINGERS 1,000 ML IV SCH ×2 (04:40→18:12)
[2017-04-26] MEDS: INSULIN REGULAR 100 UNITS/ML, 3ML VIAL SQ-INSULIN SCH ×4 (07:00→21:00)
[2017-04-26 07:48] VITALS: BP 110/76
[2017-04-26] MEDS: LACTULOSE 10 GM/15 ML UDC PO SCH (09:00)
[2017-04-26] MEDS: FAMOTIDINE 20 MG/2 ML IVPush SCH ×2 (09:04→20:59)
[2017-04-26] MEDS: RIFAXIMIN 550 MG TABLET PO SCH ×2 (09:04→20:59)
[2017-04-26] MEDS ORDERED: MORPHINE SULFATE 4 MG/ML, 1ML IVPush ONE (10:30)
[2017-04-26] MEDS ORDERED: MORPHINE SULFATE 4 MG/ML, 1ML ONE (10:46)
[2017-04-26 11:10] LABS: ALBUMIN 2.9 g/dL (3.4-5.0); ANION GAP 5 mmol/L (5-15); CALCIUM 7.9 mg/dL (8.5-10.1); CHLORIDE 103 mmol/L (98-107); CREATININE 1.17 mg/dL (0.7-1.3)
[2017-04-26 11:24] LABS: BASOPHILS # (AUTO) 0.02 x10^3/uL (0-0.1); BASOPHILS % (AUTO) 1 % (0-1); EOSINOPHILS # (AUTO) 0.18 x10^3/uL (0-0.4); EOSINOPHILS % (AUTO) 7 % (1-7); LYMPHOCYTES # (AUTO) 0.22 x10^3/uL (1-3.4); LYMPHOCYTES % (AUTO) 8 % (22-44); MD MORPH REVIEW ONLY; MEAN CORPUSCULAR HEMOGLOBIN 28.2 pg (27.5-34.5); MEAN CORPUSCULAR HGB CONC 33.1 g/dL (33.2-36.2); MEAN CORPUSCULAR VOLUME 85.2 fL (81-97); MEAN PLATELET VOLUME 9.7 fL (7.4-10.4); MONOCYTES # (AUTO) 0.33 x10^3/uL (0.2-0.8); MONOCYTES % (AUTO) 13 % (2-9); NEUTROPHILS # (AUTO) 1.85 x10^3/uL (1.8-6.8); NEUTROPHILS % (AUTO) 71 % (42-75); RED BLOOD COUNT 3.96 x10^6/uL (4.38-5.82)
[2017-04-26 11:25] LABS: HEMOGRAM NOTE RECHECKED; PLATELET COUNT 48 x10^3/uL (130-400)
[2017-04-26 11:27] LABS: ANISOCYTOSIS 1+
[2017-04-26 11:28] LABS: <PLATELET ESTIMATE> DECREASED; <PLT MORPHOLOGY> NORMAL PLT MORPH; HYPOCHROMIA 1+; OVALOCYTES 1+; POLYCHROMASIA 1+; SCHISTOCYTES 1+; TEAR DROPS 1+
[2017-04-26] MEDS: CEFTRIAXONE PMX 2GM/50ML 50 ML IV SCH (13:29)
[2017-04-26 15:40] VITALS: BP 109/67
[2017-04-26 20:32] VITALS: BP 125/67
[2017-04-26] MEDS: KETOROLAC 30 MG/1 ML IVPush PRN (22:29)
[2017-04-27] VITALS (11 sets, daily range): BP systolic 105–133; BP diastolic 62–88
[2017-04-27] MEDS: D5%-LACTATED RINGERS 1,000 ML IV SCH (02:29)
[2017-04-27 06:34] LABS: ALBUMIN 2.6 g/dL (3.4-5.0); ANION GAP 5 mmol/L (5-15); CALCIUM 7.8 mg/dL (8.5-10.1); CHLORIDE 105 mmol/L (98-107)
[2017-04-27 06:38] LABS: ALANINE AMINOTRANSFERASE 101 U/L (12-78); ALKALINE PHOSPHATASE 110 U/L (45-117); BILIRUBIN,TOTAL 1.3 mg/dL (0.2-1.0); CREATININE 0.82 mg/dL (0.7-1.3)
[2017-04-27] MEDS: INSULIN REGULAR 100 UNITS/ML, 3ML VIAL SQ-INSULIN SCH ×4 (07:00→21:00)
[2017-04-27] MEDS ORDERED: MAGNESIUM SULFATE PMX 2GM/50ML 50 ML IV ONE (07:30)
[2017-04-27] MEDS: FAMOTIDINE 20 MG/2 ML IVPush SCH ×2 (07:54→21:25)
[2017-04-27] MEDS: RIFAXIMIN 550 MG TABLET PO SCH ×2 (07:55→21:26)
[2017-04-27] MEDS ORDERED: PHYTONADIONE 10 MG/ML, 1ML SQ ONE (11:00)
[2017-04-27] MEDS ORDERED: MICROFIBRILLAR COLLAGEN 1 GM TP ONE (11:30)
[2017-04-27 12:22] LABS: MEAN CORPUSCULAR HEMOGLOBIN 27.8 pg (27.5-34.5); MEAN CORPUSCULAR HGB CONC 32.9 g/dL (33.2-36.2); MEAN CORPUSCULAR VOLUME 84.6 fL (81-97); MEAN PLATELET VOLUME 9.6 fL (7.4-10.4); RED BLOOD COUNT 3.87 x10^6/uL (4.38-5.82); RED CELL DISTRIBUTION WIDTH 18.4 % (9.4-14.8)
[2017-04-27 12:39] LABS: INTERNATIONAL NORMALIZED RATIO 1.59 (0.93-1.1); PROTHROMBIN TIME 16.2 Seconds (9.6-11.5)
[2017-04-27 12:42] LABS: PLATELET COUNT 42 x10^3/uL (130-400)
[2017-04-27 12:47] LABS: BASOPHILS # (AUTO) 0.04 x10^3/uL (0-0.1); BASOPHILS % (AUTO) 2 % (0-1); EOSINOPHILS # (AUTO) 0.16 x10^3/uL (0-0.4); EOSINOPHILS % (AUTO) 7 % (1-7); LYMPHOCYTES # (AUTO) 0.27 x10^3/uL (1-3.4); LYMPHOCYTES % (AUTO) 12 % (22-44); MD SCAN; MONOCYTES # (AUTO) 0.31 x10^3/uL (0.2-0.8); MONOCYTES % (AUTO) 14 % (2-9); NEUTROPHILS # (AUTO) 1.53 x10^3/uL (1.8-6.8); NEUTROPHILS % (AUTO) 66 % (42-75)
[2017-04-27] MEDS: CEFTRIAXONE PMX 2GM/50ML 50 ML IV SCH (16:04)
[2017-04-27 19:14] LABS: INTERNATIONAL NORMALIZED RATIO 1.54 (0.93-1.1); PROTHROMBIN TIME 15.7 Seconds (9.6-11.5)
[2017-04-27] MEDS: KETOROLAC 30 MG/1 ML IVPush PRN (21:25)
[2017-04-27] MEDS ORDERED: MORPHINE SULFATE 4 MG/ML, 1ML IVPush ONE (23:00)
[2017-04-28 02:29] VITALS: BP 109/67
[2017-04-28 06:27] LABS: MEAN CORPUSCULAR HEMOGLOBIN 28.5 pg (27.5-34.5); MEAN CORPUSCULAR HGB CONC 33.7 g/dL (33.2-36.2); MEAN CORPUSCULAR VOLUME 84.6 fL (81-97); MEAN PLATELET VOLUME 10.1 fL (7.4-10.4); PLATELET COUNT 50 x10^3/uL (130-400); RED BLOOD COUNT 3.83 x10^6/uL (4.38-5.82); RED CELL DISTRIBUTION WIDTH 18.5 % (9.4-14.8)
[2017-04-28 06:33] LABS: INTERNATIONAL NORMALIZED RATIO 1.57 (0.93-1.1)
[2017-04-28 06:34] LABS: ANION GAP 7 mmol/L (5-15); CALCIUM 7.6 mg/dL (8.5-10.1); CHLORIDE 103 mmol/L (98-107); CREATININE 0.83 mg/dL (0.7-1.3)
[2017-04-28 06:41] LABS: BASOPHILS # (AUTO) 0.01 x10^3/uL (0-0.1); BASOPHILS % (AUTO) 0 % (0-1); EOSINOPHILS # (AUTO) 0.17 x10^3/uL (0-0.4); EOSINOPHILS % (AUTO) 7 % (1-7); LYMPHOCYTES # (AUTO) 0.35 x10^3/uL (1-3.4); LYMPHOCYTES % (AUTO) 14 % (22-44); MD SCAN; MONOCYTES # (AUTO) 0.28 x10^3/uL (0.2-0.8); MONOCYTES % (AUTO) 11 % (2-9); NEUTROPHILS # (AUTO) 1.72 x10^3/uL (1.8-6.8); NEUTROPHILS % (AUTO) 68 % (42-75)
[2017-04-28 06:43] VITALS: BP 112/71
[2017-04-28] MEDS: INSULIN REGULAR 100 UNITS/ML, 3ML VIAL SQ-INSULIN SCH ×2 (07:00→11:00)
[2017-04-28] MEDS: FAMOTIDINE 20 MG/2 ML IVPush SCH ×2 (09:29→20:39)
[2017-04-28] MEDS: RIFAXIMIN 550 MG TABLET PO SCH ×2 (09:29→20:40)
[2017-04-28] MEDS: KETOROLAC 30 MG/1 ML IVPush PRN (09:29)
[2017-04-28 12:54] VITALS: BP 120/76
[2017-04-28] MEDS: CEFTRIAXONE PMX 2GM/50ML 50 ML IV SCH (13:02)
[2017-04-28] MEDS ORDERED: LIDOCAINE 1%, 10ML ONE (16:43)
[2017-04-28 20:31] VITALS: BP 131/87
[2017-04-28] MEDS: TRIAMCINOLONE CRM 0.1%, 15GM TP SCH (20:39)
[2017-04-29 02:28] VITALS: BP 105/65
[2017-04-29 06:39] LABS: INTERNATIONAL NORMALIZED RATIO 1.49 (0.93-1.1); PROTHROMBIN TIME 15.2 Seconds (9.6-11.5)
[2017-04-29 06:42] LABS: MEAN CORPUSCULAR HEMOGLOBIN 28.2 pg (27.5-34.5); MEAN CORPUSCULAR HGB CONC 33.4 g/dL (33.2-36.2); MEAN CORPUSCULAR VOLUME 84.3 fL (81-97); MEAN PLATELET VOLUME 9.5 fL (7.4-10.4); RED BLOOD COUNT 3.95 x10^6/uL (4.38-5.82); RED CELL DISTRIBUTION WIDTH 19.5 % (9.4-14.8)
[2017-04-29 06:43] LABS: PLATELET COUNT 47 x10^3/uL (130-400)
[2017-04-29 06:44] LABS: ALANINE AMINOTRANSFERASE 77 U/L (12-78); ALBUMIN 2.7 g/dL (3.4-5.0); ANION GAP 6 mmol/L (5-15); CALCIUM 7.8 mg/dL (8.5-10.1); CHLORIDE 106 mmol/L (98-107)
[2017-04-29 06:47] LABS: ALKALINE PHOSPHATASE 107 U/L (45-117); BILIRUBIN,TOTAL 1.6 mg/dL (0.2-1.0); CREATININE 0.79 mg/dL (0.7-1.3); TOTAL PROTEIN 6.3 g/dL (6.4-8.2)
[2017-04-29 07:59] VITALS: BP 139/86
[2017-04-29 08:15] LABS: BASOPHILS # (AUTO) 0.02 x10^3/uL (0-0.1); BASOPHILS % (AUTO) 1 % (0-1); EOSINOPHILS # (AUTO) 0.13 x10^3/uL (0-0.4); EOSINOPHILS % (AUTO) 5 % (1-7); LYMPHOCYTES # (AUTO) 0.31 x10^3/uL (1-3.4); LYMPHOCYTES % (AUTO) 13 % (22-44); MD MORPH REVIEW ONLY; MONOCYTES # (AUTO) 0.29 x10^3/uL (0.2-0.8); MONOCYTES % (AUTO) 12 % (2-9); NEUTROPHILS # (AUTO) 1.71 x10^3/uL (1.8-6.8); NEUTROPHILS % (AUTO) 70 % (42-75)
[2017-04-29 08:22] LABS: ANISOCYTOSIS 1+; OVALOCYTES 1+
[2017-04-29 08:23] LABS: <PLATELET ESTIMATE> DECREASED; <PLT MORPHOLOGY> NORMAL PLT MORPH; HYPOCHROMIA 1+
[2017-04-29] MEDS: FAMOTIDINE 20 MG/2 ML IVPush SCH (10:28)
[2017-04-29] MEDS: RIFAXIMIN 550 MG TABLET PO SCH ×2 (10:28→20:17)
[2017-04-29] MEDS: TRIAMCINOLONE CRM 0.1%, 15GM TP SCH ×2 (10:28→20:17)
[2017-04-29 13:02] VITALS: BP 116/74
[2017-04-29] MEDS: FUROSEMIDE 40 MG TABLET PO SCH (13:02)
[2017-04-29] MEDS ORDERED: LIDOCAINE GEL 2%, 5ML TP ONE (16:30)
[2017-04-29] MEDS: OXYcodone IR 5MG TABLET PO PRN ×2 (16:59→23:38)
[2017-04-29 19:52] VITALS: BP 132/86
[2017-04-30 03:52] VITALS: BP 130/86
[2017-04-30 05:15] LABS: CHLORIDE 106 mmol/L (98-107)
[2017-04-30 05:24] LABS: ALANINE AMINOTRANSFERASE 74 U/L (12-78); ALBUMIN 2.7 g/dL (3.4-5.0); ALKALINE PHOSPHATASE 126 U/L (45-117); ANION GAP 6 mmol/L (5-15); BILIRUBIN,TOTAL 1.6 mg/dL (0.2-1.0); CALCIUM 7.4 mg/dL (8.5-10.1); CREATININE 0.73 mg/dL (0.7-1.3); TOTAL PROTEIN 6.5 g/dL (6.4-8.2)
[2017-04-30] MEDS: OXYcodone IR 5MG TABLET PO PRN ×3 (05:31→14:12)
[2017-04-30 06:56] VITALS: BP 135/82
[2017-04-30] MEDS: TRIAMCINOLONE CRM 0.1%, 15GM TP SCH ×2 (09:53→19:32)
[2017-04-30] MEDS: RIFAXIMIN 550 MG TABLET PO SCH ×2 (09:53→19:31)
[2017-04-30] MEDS: FUROSEMIDE 40 MG TABLET PO SCH (09:53)
[2017-04-30] MEDS ORDERED: DIPHENHYDRAMINE 25 MG CAPSULE PO PRN (13:00)
[2017-04-30 13:04] VITALS: BP 130/80
[2017-04-30] MEDS ORDERED: LIDOCAINE 1%, 10ML ONE (15:01)
[2017-04-30 19:34] VITALS: BP 127/73
[2017-05-01 00:17] VITALS: BP 124/76
[2017-05-01] MEDS: OXYcodone IR 5MG TABLET PO PRN ×2 (00:20→10:11)
[2017-05-01] MEDS: FUROSEMIDE 40 MG TABLET PO SCH (10:08)
[2017-05-01] MEDS: TRIAMCINOLONE CRM 0.1%, 15GM TP SCH (10:08)
[2017-05-01] MEDS: RIFAXIMIN 550 MG TABLET PO SCH (10:08)
[2017-05-01] MEDS ORDERED: RIFA550T4 PO (11:28)
== END 2017-05-01 15:25 | disposition home or self-care (01) | DRG 871 ==
LOC: ED 09:15 → EDIP 10:37 → 3NE 11:47
PROVIDERS: ADMIT Hospitalist; ATTEND Internal Medicine
PROC: 02HV33Z Insertion of Infusion Device into Superior Vena Cava, Percutaneous Approach (ICD-10-PCS; principal; 2017-04-26)
PROC: B5181ZA Fluoroscopy of Superior Vena Cava using Low Osmolar Contrast, Guidance (ICD-10-PCS; 2017-04-26)
PROC: B548ZZA Ultrasonography of Superior Vena Cava, Guidance (ICD-10-PCS; 2017-04-26)
PROC: 0W9G3ZZ Drainage of Peritoneal Cavity, Percutaneous Approach (ICD-10-PCS; 2017-04-28)
DX: A41.9 Sepsis, unspecified organism (principal); E43 Unspecified severe protein-calorie malnutrition; G92 Toxic encephalopathy; N17.9 Acute kidney failure, unspecified; D69.6 Thrombocytopenia, unspecified; I85.00 Esophageal varices without bleeding; E11.65 Type 2 diabetes mellitus with hyperglycemia; T82.838A Hemorrhage due to vascular prosthetic devices, implants and grafts, initial encounter; K76.6 Portal hypertension; R18.8 Other ascites; K72.90 Hepatic failure, unspecified without coma; D63.8 Anemia in other chronic diseases classified elsewhere; B19.20 Unspecified viral hepatitis C without hepatic coma; K21.9 Gastro-esophageal reflux disease without esophagitis; F12.90 Cannabis use, unspecified, uncomplicated; K74.60 Unspecified cirrhosis of liver; N43.2 Other hydrocele; N50.89 Other specified disorders of the male genital organs; R33.9 Retention of urine, unspecified; R04.0 Epistaxis; E66.9 Obesity, unspecified; K42.9 Umbilical hernia without obstruction or gangrene; F10.20 Alcohol dependence, uncomplicated; Y83.8 Other surgical procedures as the cause of abnormal reaction of the patient, or of later complication, without mention of misadventure at the time of the procedure; Y92.89 Other specified places as the place of occurrence of the external cause; Z68.33 Body mass index [BMI] 33.0-33.9, adult; Z79.899 Other long term (current) drug therapy; Z88.8 Allergy status to other drugs, medicaments and biological substances; Z82.49 Family history of ischemic heart disease and other diseases of the circulatory system; Z83.3 Family history of diabetes mellitus
CPT/HCPCS: 36415; 36569; 49083; 70450; 71010; 74176; 76870; 76937; 76942; 77001; 80048; 80053; 81001; 82010; 82040; 82140; 82565; 82803; 82962; 83605; 83735; 85025; 85049; 85384; 85610; 85730; 86850; 86900; 87040; 87086; 93005; J0696; J1815; J1885; J2405; J3430; J3490; C1751; J3475; J7030; J7121; P9012; P9035; Q0163; S0028

== ENCOUNTER → 2017-05-06 | Outpatient (CLI) | payer MEDICAID ==
[~2017-05-06] MED LIST changes: +AMLO2.5T PO; +DICY10CA3 PO; +LIDOCAINE 2%, 20ML ONE; +POTA20PA PO
== END | disposition home or self-care (01) ==
LOC: RAD 12:28
PROVIDERS: ATTEND Emergency Medicine
DX: R18.8 Other ascites (principal)
CPT/HCPCS: 49083; J3490

== ENCOUNTER → 2017-05-13 | Outpatient (CLI) | payer MEDICAID | LOC: RAD 11:19 | PROVIDERS: ATTEND Emergency Medicine | DX: R18.8 Other ascites (principal) | CPT/HCPCS: 49083; J3490 ==

== ENCOUNTER → 2017-05-19 | Outpatient (CLI) | payer MEDICAID ==
[~2017-05-19] MED LIST changes: +LIDOCAINE 1%, 10ML ONE; -LIDOCAINE 2%, 20ML ONE
== END | disposition home or self-care (01) ==
LOC: RAD 10:36
PROVIDERS: ATTEND Emergency Medicine
DX: K74.60 Unspecified cirrhosis of liver (principal); R18.8 Other ascites
CPT/HCPCS: 49083; J3490

== ENCOUNTER 2017-06-13 19:15 | Emergency (ER) | payer MEDICAID ==
[~2017-06-13] VITALS: Ht 182.9 cm; Wt 134.7 kg
[~2017-06-13 19:15] MED LIST changes: -LIDOCAINE 1%, 10ML ONE
[2017-06-13 21:12] LABS: INTERNATIONAL NORMALIZED RATIO 1.37 (0.93-1.1)
[2017-06-13 21:17] LABS: ALANINE AMINOTRANSFERASE 41 U/L (12-78); ALBUMIN 2.4 g/dL (3.4-5.0); ANION GAP 6 mmol/L (5-15); CALCIUM 7.8 mg/dL (8.5-10.1); CHLORIDE 104 mmol/L (98-107)
[2017-06-13 21:19] LABS: ALKALINE PHOSPHATASE 109 U/L (45-117); BILIRUBIN,TOTAL 2.5 mg/dL (0.2-1.0); TOTAL PROTEIN 7.6 g/dL (6.4-8.2)
[2017-06-13] MEDS ORDERED: LIDOCAINE 1%, 20ML ONE (21:29)
[2017-06-13 21:41] LABS: BASOPHILS # (AUTO) 0.03 x10^3/uL (0-0.1); BASOPHILS % (AUTO) 1 % (0-1); EOSINOPHILS % (AUTO) 7 % (1-7); LYMPHOCYTES # (AUTO) 0.41 x10^3/uL (1-3.4); LYMPHOCYTES % (AUTO) 10 % (22-44); MD SCAN; MEAN CORPUSCULAR HEMOGLOBIN 25.7 pg (27.5-34.5); MEAN CORPUSCULAR HGB CONC 31.7 g/dL (33.2-36.2); MEAN CORPUSCULAR VOLUME 81.3 fL (81-97); MEAN PLATELET VOLUME 9.9 fL (7.4-10.4); MONOCYTES # (AUTO) 0.43 x10^3/uL (0.2-0.8); MONOCYTES % (AUTO) 10 % (2-9); NEUTROPHILS # (AUTO) 2.96 x10^3/uL (1.8-6.8); NEUTROPHILS % (AUTO) 72 % (42-75); PLATELET COUNT 76 x10^3/uL (130-400); RED BLOOD COUNT 5.29 x10^6/uL (4.38-5.82); RED CELL DISTRIBUTION WIDTH 18.5 % (9.4-14.8)
[2017-06-13 22:40] LABS: CELLS COUNTED 39
[2017-06-13] MEDS ORDERED: ALBUMIN HUMAN 25% 400 ML IV ONE (23:00)
[2017-06-13] MEDS ORDERED: ALBUMIN HUMAN 25% 100 ML IV ONE (23:30)
[2017-06-14 00:50] VITALS: BP 122/84
== END 2017-06-14 01:29 | disposition home or self-care (01) ==
LOC: ED 22:10
DX: K70.31 Alcoholic cirrhosis of liver with ascites (principal); R10.9 Unspecified abdominal pain; K21.9 Gastro-esophageal reflux disease without esophagitis; E11.65 Type 2 diabetes mellitus with hyperglycemia; I10 Essential (primary) hypertension; E66.9 Obesity, unspecified
CPT/HCPCS: 36415; 49083; 80053; 82042; 83615; 85025; 85610; 87070; 87205; 89051; 96365; 99285; P9047

== ENCOUNTER → 2017-07-01 | Outpatient (CLI) | payer MEDICAID ==
[~2017-07-01] MED LIST changes: +LIDOCAINE 1%, 20ML ONE
== END | disposition home or self-care (01) ==
LOC: RAD 13:46
PROVIDERS: ATTEND Emergency Medicine
DX: R18.8 Other ascites (principal); K74.60 Unspecified cirrhosis of liver; N50.82 Scrotal pain
CPT/HCPCS: 49083; 76942; J3490

== ENCOUNTER 2017-07-15 08:39 | Inpatient (IN) | payer MEDICAID ==
[~2017-07-15] VITALS: Ht 182.9 cm; Wt 102.9 kg
[~2017-07-15 08:39] MED LIST changes: -LIDOCAINE 1%, 20ML ONE
[2017-07-15] MEDS ORDERED: SODIUM CHLORIDE 0.9% 1,000ML IVBOLUS ONE (09:30)
[2017-07-15] MEDS ORDERED: ONDANSETRON 2MG/ML, 2ML IVPush ONE (09:30)
[2017-07-15] MEDS ORDERED: SODIUM CHLORIDE FLUSH 10ML SYR IVF ONE (09:30)
[2017-07-15] MEDS ORDERED: ONDANSETRON 2MG/ML, 2ML ONE (10:01)
[2017-07-15] MEDS ORDERED: MORPHINE SULFATE 4 MG/ML, 1ML ONE ×2 (10:01→11:48)
[2017-07-15] MEDS: MORPHINE SULFATE 4 MG/ML, 1ML IVPush PRN ×2 (10:03→11:55)
[2017-07-15] MEDS ORDERED: LIDOCAINE 1%, 20ML ONE (10:04)
[2017-07-15 10:31] LABS: MEAN CORPUSCULAR HEMOGLOBIN 26.4 pg (27.5-34.5); MEAN CORPUSCULAR VOLUME 80.1 fL (81-97); MEAN PLATELET VOLUME 9.5 fL (7.4-10.4); PLATELET COUNT 85 x10^3/uL (130-400); RED CELL DISTRIBUTION WIDTH 20.3 % (9.4-14.8)
[2017-07-15 10:46] LABS: ALANINE AMINOTRANSFERASE 70 U/L (12-78); ALBUMIN 2.1 g/dL (3.4-5.0); ANION GAP 8 mmol/L (5-15); CALCIUM 7.4 mg/dL (8.5-10.1); CHLORIDE 101 mmol/L (98-107); CREATININE 0.94 mg/dL (0.7-1.3)
[2017-07-15 10:48] LABS: ALKALINE PHOSPHATASE 99 U/L (45-117); BILIRUBIN,TOTAL 3.3 mg/dL (0.2-1.0); TOTAL PROTEIN 7.1 g/dL (6.4-8.2)
[2017-07-15 10:53] LABS: BASOPHILS # (AUTO) 0.01 x10^3/uL (0-0.1); BASOPHILS % (AUTO) 0 % (0-1); EOSINOPHILS # (AUTO) 0.01 x10^3/uL (0-0.4); EOSINOPHILS % (AUTO) 0 % (1-7); LYMPHOCYTES # (AUTO) 0.25 x10^3/uL (1-3.4); LYMPHOCYTES % (AUTO) 2 % (22-44); MD SCAN; MONOCYTES # (AUTO) 0.32 x10^3/uL (0.2-0.8); MONOCYTES % (AUTO) 3 % (2-9); NEUTROPHILS # (AUTO) 11.65 x10^3/uL (1.8-6.8); NEUTROPHILS % (AUTO) 95 % (42-75)
[2017-07-15] MEDS ORDERED: INSULIN REGULAR 100 UNITS/ML, 3ML VIAL IVPush ONE (11:30)
[2017-07-15] MEDS ORDERED: DEXTROSE 50%, 50ML SYRINGE IVPush ONE (11:30)
[2017-07-15] MEDS ORDERED: FUROSEMIDE 40 MG/4 ML IVPush ONE (11:30)
[2017-07-15] MEDS ORDERED: CALCIUM CHLORIDE 10%, 10ML SYR IVPush ONE (11:30)
[2017-07-15] MEDS ORDERED: DEXTROSE 50%, 50ML SYRINGE ONE (11:34)
[2017-07-15] MEDS ORDERED: CALCIUM CHLORIDE 10%, 10ML SYR ONE (11:34)
[2017-07-15] MEDS ORDERED: INSULIN REGULAR 100 UNITS/ML, 3ML VIAL ONE (11:36)
[2017-07-15] MEDS ORDERED: FUROSEMIDE 40 MG/4 ML ONE (11:37)
[2017-07-15] MEDS ORDERED: SODIUM POLY SULFONATE UDC 15 GM/60 ML PO ONE ×2 (12:00→13:30)
[2017-07-15] MEDS ORDERED: DEXTROSE 5% IV ONE (12:00)
[2017-07-15] MEDS ORDERED: CALCIUM CHLORIDE IV ONE (12:00)
[2017-07-15] MEDS ORDERED: ONDANSETRON ODT 4 MG PO PRN (13:00)
[2017-07-15] MEDS ORDERED: DOCUSATE 100 MG CAPSULE PO PRN (13:00)
[2017-07-15] MEDS ORDERED: ONDANSETRON 2MG/ML, 2ML IVPush PRN (13:00)
[2017-07-15] MEDS ORDERED: GLUCAGON 1 MG IM PRN (13:00)
[2017-07-15] MEDS ORDERED: DEXTROSE 4 GM TAB.CHEW PO PRN (13:00)
[2017-07-15] MEDS ORDERED: DEXTROSE 50%, 50ML SYRINGE IVPush PRN (13:00)
[2017-07-15] MEDS ORDERED: PANTOPRAZOLE 40 MG IV ONE (13:08)
[2017-07-15] MEDS ORDERED: CEFTRIAXONE PMX 1GM/50ML 50 ML ONE (13:08)
[2017-07-15] MEDS ORDERED: HEPARIN 5,000 UNITS/ML, 1ML ONE (13:08)
[2017-07-15] MEDS ORDERED: SODIUM POLYSTYRENE SULFONATE ORAL SUSP ONE (13:09)
[2017-07-15 13:30] LABS: INTERNATIONAL NORMALIZED RATIO 1.47 (0.93-1.1); PROTHROMBIN TIME 15.2 Seconds (9.6-11.5)
[2017-07-15 13:47] VITALS: BP 131/75
[2017-07-15 14:00] VITALS: BP 131/75
[2017-07-15] MEDS: CEFTRIAXONE 1,000 MG in DEXTROSE 5% 50 ML IV SCH (14:24)
[2017-07-15] MEDS: PANTOPRAZOLE 40 MG IV IVPush SCH (14:24)
[2017-07-15] MEDS: HEPARIN 5,000 UNITS/ML, 1ML SQ SCH ×2 (14:25→21:33)
[2017-07-15] MEDS ORDERED: SODIUM POLYSTYRENE SULFONATE ORAL SUSP PO ONE (17:30)
[2017-07-15] MEDS: INSULIN LISPRO 100 UNITS/ML, PEN SQ-INSULIN SCH ×2 (18:00→21:34)
[2017-07-15 21:01] VITALS: BP 113/77
[2017-07-15] MEDS: RIFAXIMIN 550 MG TABLET PO SCH (21:32)
[2017-07-15] MEDS: LACTULOSE 20 GM/30 ML UDC PO SCH (21:32)
[2017-07-15] MEDS: SODIUM CHLORIDE FLUSH 10ML SYR IVF SCH (21:38)
[2017-07-16 01:35] VITALS: BP 108/73
[2017-07-16] MEDS: HEPARIN 5,000 UNITS/ML, 1ML SQ SCH ×3 (05:11→21:10)
[2017-07-16 05:47] LABS: MEAN CORPUSCULAR HEMOGLOBIN 26.1 pg (27.5-34.5); MEAN CORPUSCULAR HGB CONC 32.7 g/dL (33.2-36.2); MEAN CORPUSCULAR VOLUME 79.9 fL (81-97); MEAN PLATELET VOLUME 9.5 fL (7.4-10.4); PLATELET COUNT 60 x10^3/uL (130-400); RED BLOOD COUNT 4.86 x10^6/uL (4.38-5.82); RED CELL DISTRIBUTION WIDTH 19.8 % (9.4-14.8)
[2017-07-16 05:56] LABS: CHLORIDE 97 mmol/L (98-107)
[2017-07-16 06:03] LABS: ALANINE AMINOTRANSFERASE 57 U/L (12-78); ALBUMIN 1.7 g/dL (3.4-5.0); ALKALINE PHOSPHATASE 80 U/L (45-117); ANION GAP 9 mmol/L (5-15); BILIRUBIN,TOTAL 2.6 mg/dL (0.2-1.0); CALCIUM 7.1 mg/dL (8.5-10.1); CREATININE 0.84 mg/dL (0.7-1.3); TOTAL PROTEIN 5.9 g/dL (6.4-8.2)
[2017-07-16 06:30] LABS: BASOPHILS # (AUTO) 0.01 x10^3/uL (0-0.1); BASOPHILS % (AUTO) 0 % (0-1); EOSINOPHILS # (AUTO) 0.17 x10^3/uL (0-0.4); EOSINOPHILS % (AUTO) 3 % (1-7); LYMPHOCYTES # (AUTO) 0.59 x10^3/uL (1-3.4); LYMPHOCYTES % (AUTO) 9 % (22-44); MD MORPH REVIEW ONLY; MONOCYTES # (AUTO) 0.61 x10^3/uL (0.2-0.8); MONOCYTES % (AUTO) 10 % (2-9); NEUTROPHILS # (AUTO) 5.09 x10^3/uL (1.8-6.8); NEUTROPHILS % (AUTO) 79 % (42-75)
[2017-07-16 06:44] LABS: ANISOCYTOSIS 1+; HYPOCHROMIA 1+
[2017-07-16 06:45] LABS: <PLATELET ESTIMATE> DECREASED; <PLT MORPHOLOGY> NORMAL PLT MORPH; OVALOCYTES 1+
[2017-07-16] MEDS: INSULIN LISPRO 100 UNITS/ML, PEN SQ-INSULIN SCH ×4 (07:00→21:09)
[2017-07-16 08:04] VITALS: BP 111/70
[2017-07-16] MEDS: FUROSEMIDE 40 MG TABLET PO SCH (08:57)
[2017-07-16] MEDS: RIFAXIMIN 550 MG TABLET PO SCH ×2 (08:57→21:09)
[2017-07-16] MEDS: LACTULOSE 20 GM/30 ML UDC PO SCH ×2 (08:57→21:09)
[2017-07-16] MEDS: SODIUM CHLORIDE FLUSH 10ML SYR IVF SCH ×2 (08:57→21:00)
[2017-07-16] MEDS: PANTOPRAZOLE 40 MG IV IVPush SCH (08:57)
[2017-07-16 14:00] VITALS: BP 119/84
[2017-07-16] MEDS: CEFTRIAXONE 1,000 MG in DEXTROSE 5% 50 ML IV SCH (14:05)
[2017-07-16 19:10] VITALS: BP 121/82
[2017-07-17 00:19] VITALS: BP 108/68
[2017-07-17] MEDS: HEPARIN 5,000 UNITS/ML, 1ML SQ SCH ×3 (04:59→20:50)
[2017-07-17] MEDS: INSULIN LISPRO 100 UNITS/ML, PEN SQ-INSULIN SCH ×4 (07:00→20:50)
[2017-07-17 08:00] VITALS: BP 108/77
[2017-07-17] MEDS: SODIUM CHLORIDE FLUSH 10ML SYR IVF SCH ×2 (08:19→20:48)
[2017-07-17] MEDS: FUROSEMIDE 40 MG TABLET PO SCH (08:19)
[2017-07-17] MEDS: RIFAXIMIN 550 MG TABLET PO SCH ×2 (08:19→20:48)
[2017-07-17] MEDS: LACTULOSE 20 GM/30 ML UDC PO SCH ×2 (08:19→20:48)
[2017-07-17] MEDS: PANTOPRAZOLE 40 MG IV IVPush SCH (08:19)
[2017-07-17] MEDS: OXYcodone IR 5MG TABLET PO PRN ×2 (12:38→20:48)
[2017-07-17] MEDS: CEFTRIAXONE 1,000 MG in DEXTROSE 5% 50 ML IV SCH (13:58)
[2017-07-17 14:31] VITALS: BP 110/75
[2017-07-17 20:00] VITALS: BP 113/77
[2017-07-18 03:25] VITALS: BP 101/67
[2017-07-18] MEDS: HEPARIN 5,000 UNITS/ML, 1ML SQ SCH ×3 (04:46→20:29)
[2017-07-18] MEDS: INSULIN LISPRO 100 UNITS/ML, PEN SQ-INSULIN SCH ×4 (07:00→20:38)
[2017-07-18] MEDS: PANTOPRAZOLE 40 MG IV IVPush SCH (07:42)
[2017-07-18] MEDS: OXYcodone IR 5MG TABLET PO PRN ×2 (07:42→22:49)
[2017-07-18] MEDS ORDERED: LIDOCAINE 1%, 20ML ONE (08:09)
[2017-07-18 08:56] VITALS: BP 120/80
[2017-07-18] MEDS: LACTULOSE 20 GM/30 ML UDC PO SCH ×2 (09:00→20:29)
[2017-07-18] MEDS: RIFAXIMIN 550 MG TABLET PO SCH ×2 (09:00→20:29)
[2017-07-18] MEDS: FUROSEMIDE 40 MG TABLET PO SCH (09:00)
[2017-07-18] MEDS: SODIUM CHLORIDE FLUSH 10ML SYR IVF SCH ×2 (09:00→20:29)
[2017-07-18] MEDS: CEFTRIAXONE 1,000 MG in DEXTROSE 5% 50 ML IV SCH (13:59)
[2017-07-18 14:00] VITALS: BP 119/81
[2017-07-18 20:00] VITALS: BP 99/65
[2017-07-19 01:45] VITALS: BP 120/82
[2017-07-19] MEDS: HEPARIN 5,000 UNITS/ML, 1ML SQ SCH ×3 (04:44→20:32)
[2017-07-19 05:43] LABS: MEAN CORPUSCULAR HGB CONC 32.7 g/dL (33.2-36.2); MEAN CORPUSCULAR VOLUME 79.6 fL (81-97); RED BLOOD COUNT 5.44 x10^6/uL (4.38-5.82); RED CELL DISTRIBUTION WIDTH 19.8 % (9.4-14.8)
[2017-07-19 05:51] LABS: CHLORIDE 91 mmol/L (98-107)
[2017-07-19 06:01] LABS: ALANINE AMINOTRANSFERASE 55 U/L (12-78); ALBUMIN 1.7 g/dL (3.4-5.0); ALKALINE PHOSPHATASE 104 U/L (45-117); ANION GAP 7 mmol/L (5-15); BILIRUBIN,TOTAL 1.5 mg/dL (0.2-1.0); CALCIUM 7.1 mg/dL (8.5-10.1); CREATININE 0.83 mg/dL (0.7-1.3); TOTAL PROTEIN 6.2 g/dL (6.4-8.2)
[2017-07-19 06:29] LABS: BASOPHILS # (AUTO) 0.01 x10^3/uL (0-0.1); BASOPHILS % (AUTO) 0 % (0-1); EOSINOPHILS # (AUTO) 0.29 x10^3/uL (0-0.4); EOSINOPHILS % (AUTO) 5 % (1-7); LYMPHOCYTES # (AUTO) 0.68 x10^3/uL (1-3.4); LYMPHOCYTES % (AUTO) 10 % (22-44); MD SCAN; MEAN PLATELET VOLUME 9.5 fL (7.4-10.4); MONOCYTES % (AUTO) 15 % (2-9); NEUTROPHILS # (AUTO) 4.53 x10^3/uL (1.8-6.8); NEUTROPHILS % (AUTO) 70 % (42-75); PLATELET COUNT 98 x10^3/uL (130-400)
[2017-07-19 08:12] VITALS: BP 122/87
[2017-07-19] MEDS: RIFAXIMIN 550 MG TABLET PO SCH ×2 (08:39→20:30)
[2017-07-19] MEDS: LACTULOSE 20 GM/30 ML UDC PO SCH (08:40)
[2017-07-19] MEDS: FUROSEMIDE 40 MG TABLET PO SCH (08:40)
[2017-07-19] MEDS: SODIUM CHLORIDE FLUSH 10ML SYR IVF SCH ×2 (08:40→20:30)
[2017-07-19] MEDS: PANTOPRAZOLE 40 MG IV IVPush SCH (08:40)
[2017-07-19] MEDS: INSULIN LISPRO 100 UNITS/ML, PEN SQ-INSULIN SCH ×4 (08:40→20:41)
[2017-07-19] MEDS: OXYcodone IR 5MG TABLET PO PRN (11:46)
[2017-07-19] MEDS: CEFTRIAXONE 1,000 MG in DEXTROSE 5% 50 ML IV SCH (13:47)
[2017-07-19 15:08] VITALS: BP 115/85
[2017-07-19 16:51] VITALS: BP 108/73
[2017-07-19 20:00] VITALS: BP 113/72
[2017-07-19] MEDS: ACETAMINOPHEN 500 MG TABLET PO SCH (21:00)
[2017-07-20] MEDS ORDERED: OXYcodone IR 5MG TABLET PO PRN
[2017-07-20 02:00] VITALS: BP 120/86
[2017-07-20] MEDS: ACETAMINOPHEN 500 MG TABLET PO SCH (04:18)
[2017-07-20] MEDS: HEPARIN 5,000 UNITS/ML, 1ML SQ SCH (04:18)
[2017-07-20] MEDS: INSULIN LISPRO 100 UNITS/ML, PEN SQ-INSULIN SCH (07:00)
[2017-07-20] MEDS ORDERED: CIPR500T3 PO (07:54)
[2017-07-20] MEDS: RIFAXIMIN 550 MG TABLET PO SCH (08:15)
[2017-07-20] MEDS: PANTOPRAZOLE 40 MG IV IVPush SCH (08:15)
[2017-07-20] MEDS: FUROSEMIDE 40 MG TABLET PO SCH (08:15)
[2017-07-20] MEDS: SODIUM CHLORIDE FLUSH 10ML SYR IVF SCH (08:15)
== END 2017-07-20 10:52 | disposition home or self-care (01) | DRG 371 ==
LOC: ED 11:20 → EDIP 11:21 → ED 11:49 → 4EST 13:42
PROVIDERS: ADMIT Hospitalist; ATTEND Family Medicine
PROC: 0W9G30Z Drainage of Peritoneal Cavity with Drainage Device, Percutaneous Approach (ICD-10-PCS; principal; 2017-07-15)
PROC: 0W9G30Z Drainage of Peritoneal Cavity with Drainage Device, Percutaneous Approach (ICD-10-PCS; 2017-07-18)
DX: K65.2 Spontaneous bacterial peritonitis (principal); E43 Unspecified severe protein-calorie malnutrition; J96.10 Chronic respiratory failure, unspecified whether with hypoxia or hypercapnia; D69.6 Thrombocytopenia, unspecified; B17.2 Acute hepatitis E; E87.2 Acidosis; E87.1 Hypo-osmolality and hyponatremia; K76.6 Portal hypertension; I85.00 Esophageal varices without bleeding; R65.10 Systemic inflammatory response syndrome (SIRS) of non-infectious origin without acute organ dysfunction; E87.5 Hyperkalemia; D63.8 Anemia in other chronic diseases classified elsewhere; E11.9 Type 2 diabetes mellitus without complications; B19.20 Unspecified viral hepatitis C without hepatic coma; Z68.30 Body mass index [BMI] 30.0-30.9, adult; F12.90 Cannabis use, unspecified, uncomplicated; I10 Essential (primary) hypertension; J44.9 Chronic obstructive pulmonary disease, unspecified; K42.9 Umbilical hernia without obstruction or gangrene; K70.11 Alcoholic hepatitis with ascites; K70.31 Alcoholic cirrhosis of liver with ascites; L29.9 Pruritus, unspecified; N43.3 Hydrocele, unspecified; Z66 Do not resuscitate; Z80.41 Family history of malignant neoplasm of ovary; Z82.49 Family history of ischemic heart disease and other diseases of the circulatory system; Z99.81 Dependence on supplemental oxygen; Z83.3 Family history of diabetes mellitus
CPT/HCPCS: 36415; 49083; 80053; 82042; 82140; 82728; 82962; 83540; 83550; 83605; 83615; 83690; 83735; 84132; 84466; 85025; 85610; 85730; 87040; 87070; 87077; 87186; 87205; 89051; 93005; 96374; 96375; 96376; J1644; J1940; J2405; J3490; C9113; J1815; J7030

== ENCOUNTER 2017-07-25 18:15 | Inpatient (IN) | payer MEDICAID ==
[~2017-07-25] VITALS: Ht 182.9 cm; Wt 111.9 kg
[~2017-07-25 18:15] MED LIST changes: +CIPR500T3 PO
[2017-07-25] MEDS ORDERED: SODIUM CHLORIDE FLUSH 10ML SYR IVF ONE (19:00)
[2017-07-25] MEDS ORDERED: SODIUM CHLORIDE 0.9% 1,000ML IVBOLUS ONE (19:00)
[2017-07-25] MEDS ORDERED: ONDANSETRON 2MG/ML, 2ML IVPush ONE (19:00)
[2017-07-25] MEDS ORDERED: ONDANSETRON 2MG/ML, 2ML ONE (19:09)
[2017-07-25] MEDS ORDERED: MORPHINE SULFATE 4 MG/ML, 1ML ONE ×2 (19:11→21:13)
[2017-07-25] MEDS: MORPHINE SULFATE 4 MG/ML, 1ML IVPush PRN ×2 (19:14→21:16)
[2017-07-25 19:16] LABS: INTERNATIONAL NORMALIZED RATIO 1.37 (0.93-1.1); PROTHROMBIN TIME 14.2 Seconds (9.6-11.5)
[2017-07-25 19:27] LABS: ALANINE AMINOTRANSFERASE 92 U/L (12-78); ANION GAP 6 mmol/L (5-15); CALCIUM 7.7 mg/dL (8.5-10.1); CHLORIDE 97 mmol/L (98-107); CREATININE 0.92 mg/dL (0.7-1.3)
[2017-07-25 19:32] LABS: ALKALINE PHOSPHATASE 182 U/L (45-117); BILIRUBIN,TOTAL 1.7 mg/dL (0.2-1.0); TOTAL PROTEIN 7.4 g/dL (6.4-8.2)
[2017-07-25 19:35] LABS: BASOPHILS # (AUTO) 0.04 x10^3/uL (0-0.1); BASOPHILS % (AUTO) 1 % (0-1); EOSINOPHILS # (AUTO) 0.31 x10^3/uL (0-0.4); EOSINOPHILS % (AUTO) 6 % (1-7); LYMPHOCYTES # (AUTO) 0.66 x10^3/uL (1-3.4); LYMPHOCYTES % (AUTO) 13 % (22-44); MD SCAN; MEAN CORPUSCULAR HEMOGLOBIN 26.2 pg (27.5-34.5); MEAN CORPUSCULAR VOLUME 79.2 fL (81-97); MEAN PLATELET VOLUME 9.2 fL (7.4-10.4); MONOCYTES # (AUTO) 0.52 x10^3/uL (0.2-0.8); MONOCYTES % (AUTO) 11 % (2-9); NEUTROPHILS # (AUTO) 3.46 x10^3/uL (1.8-6.8); NEUTROPHILS % (AUTO) 69 % (42-75); PLATELET COUNT 77 x10^3/uL (130-400); RED BLOOD COUNT 5.65 x10^6/uL (4.38-5.82); RED CELL DISTRIBUTION WIDTH 20.4 % (9.4-14.8)
[2017-07-25] MEDS ORDERED: LACTULOSE 10 GM/15 ML UDC PO ONE (20:00)
[2017-07-25] MEDS ORDERED: ALBUMIN HUMAN 25% 100 ML IV ONE (20:00)
[2017-07-25] MEDS ORDERED: LIDOCAINE-MPF 1%, 2ML ONE (20:12)
[2017-07-25 21:46] LABS: CELLS COUNTED 74
[2017-07-25] MEDS ORDERED: ERGOCALCIFEROL 50,000 UNIT CAPSULE PO SCH (22:00)
[2017-07-25] MEDS ORDERED: hydrALAzine 20 MG/ML, 1ML IVPush PRN (22:00)
[2017-07-25] MEDS ORDERED: OXYcodone IR 5MG TABLET PO PRN (22:00)
[2017-07-25] MEDS ORDERED: ENALAPRILAT 1.25 MG/ML, 2ML IVPush PRN (22:00)
[2017-07-25] MEDS ORDERED: morphine SULFATE 10 MG/ML, 1ML IVPush PRN (22:00)
[2017-07-25 22:59] LABS: FREE T4 (FREE THYROXINE) 1.13 ng/dL (0.76-1.46); THYROID STIMULATING HORMONE 1.97 mIU/L (0.358-3.740)
[2017-07-25] MEDS: LACTULOSE 20 GM/30 ML UDC PO SCH (23:13)
[2017-07-25] MEDS: CEFTRIAXONE PMX 2GM/50ML 50 ML IV SCH (23:19)
[2017-07-26] MEDS ORDERED: ALPR1TAB2 PO
[2017-07-26] MEDS ORDERED: LACT20SO13 PO
[2017-07-26 01:40] VITALS: BP 112/72
[2017-07-26] MEDS: ALBUMIN HUMAN 25% 100 ML IV SCH ×3 (02:46→16:29)
[2017-07-26 05:17] LABS: MICROSCOPIC NOT IND
[2017-07-26 05:20] LABS: CULTURE INDICATED? NO
[2017-07-26 05:38] LABS: ALBUMIN 2.1 g/dL (3.4-5.0); ANION GAP 7 mmol/L (5-15); CALCIUM 7.2 mg/dL (8.5-10.1); CHLORIDE 100 mmol/L (98-107)
[2017-07-26 05:42] LABS: ALANINE AMINOTRANSFERASE 67 U/L (12-78); ALKALINE PHOSPHATASE 114 U/L (45-117); BILIRUBIN,TOTAL 1.3 mg/dL (0.2-1.0); CHOL/HDL RATIO 1.9; CHOLESTEROL, TOTAL 62 mg/dL (140-239); CREATININE 0.77 mg/dL (0.7-1.3); HDL CHOL % 52 % (26-37); HDL CHOLESTEROL (DIRECT) 32 mg/dL (40-60); LDL CHOLESTEROL,CALCULATED 25 mg/dL (54-169); LDL/HDL RATIO 0.8 (0.5-3.0); TOTAL PROTEIN 5.8 g/dL (6.4-8.2); TRIGLYCERIDES 23 mg/dL (50-200); VLDL CHOLESTEROL 5 mg/dL (0-25)
[2017-07-26 06:22] LABS: MEAN CORPUSCULAR HEMOGLOBIN 26.4 pg (27.5-34.5); MEAN CORPUSCULAR HGB CONC 33.6 g/dL (33.2-36.2); MEAN CORPUSCULAR VOLUME 78.6 fL (81-97); MEAN PLATELET VOLUME 9.3 fL (7.4-10.4); PLATELET COUNT 50 x10^3/uL (130-400); RED BLOOD COUNT 4.36 x10^6/uL (4.38-5.82)
[2017-07-26 06:50] LABS: MD YES
[2017-07-26 06:57] LABS: BAND#(MANUAL) 0.06 x10^3/uL; BANDS%(MANUAL) 2 % (0-7); EOS#(MANUAL) 0.09 x10^3/uL (0.0-0.4); EOS% (MANUAL) 3 % (1-7); LYMPH#(MANUAL) 0.29 x10^3/uL (1-3.4); LYMPHS% (MANUAL) 10 % (22-44); MONOS% (MANUAL) 7 % (2-9); SEG#(MANUAL) 2.26 x10^3/uL (1.8-6.8); SEGS% (MANUAL) 78 % (42-75)
[2017-07-26 07:00] LABS: <PLATELET ESTIMATE> DECREASED; <PLT MORPHOLOGY> NORMAL PLT MORPH; ANISOCYTOSIS 1+; ECHINOCYTES 1+; HYPOCHROMIA 1+
[2017-07-26 07:57] VITALS: BP 100/66
[2017-07-26] MEDS: RIFAXIMIN 550 MG TABLET PO SCH ×2 (09:01→19:59)
[2017-07-26] MEDS: LACTULOSE 20 GM/30 ML UDC PO SCH ×3 (09:01→19:59)
[2017-07-26] MEDS: SPIRONOLACTONE 25 MG TABLET PO SCH ×2 (09:01→19:59)
[2017-07-26] MEDS: FUROSEMIDE 40 MG TABLET PO SCH (09:01)
[2017-07-26] MEDS: ZINC SULFATE 220 MG CAPSULE PO SCH ×3 (09:01→16:29)
[2017-07-26] MEDS: OXYcodone IR 5MG TABLET PO PRN ×3 (09:05→20:41)
[2017-07-26 12:30] VITALS: BP 108/68
[2017-07-26] MEDS: ONDANSETRON 2MG/ML, 2ML IVPush PRN (19:59)
[2017-07-26 20:06] VITALS: BP 128/87
[2017-07-26] MEDS: CEFTRIAXONE PMX 2GM/50ML 50 ML IV SCH (21:59)
[2017-07-27 01:17] VITALS: BP 108/69
[2017-07-27] MEDS: OXYcodone IR 5MG TABLET PO PRN ×2 (05:40→11:52)
[2017-07-27 08:09] VITALS: BP 145/106
[2017-07-27] MEDS: ZINC SULFATE 220 MG CAPSULE PO SCH ×3 (08:54→16:55)
[2017-07-27] MEDS: RIFAXIMIN 550 MG TABLET PO SCH ×2 (08:54→20:18)
[2017-07-27] MEDS: SPIRONOLACTONE 25 MG TABLET PO SCH ×2 (08:54→20:17)
[2017-07-27] MEDS: LACTULOSE 20 GM/30 ML UDC PO SCH ×3 (08:55→20:18)
[2017-07-27] MEDS: FUROSEMIDE 40 MG TABLET PO SCH (08:55)
[2017-07-27 14:11] VITALS: BP 123/77
[2017-07-27] MEDS ORDERED: LIDOCAINE 1%, 20ML ONE (15:04)
[2017-07-27 18:49] VITALS: BP 129/88
[2017-07-27] MEDS: CEFTRIAXONE PMX 2GM/50ML 50 ML IV SCH (22:59)
[2017-07-28 01:39] VITALS: BP 121/78
[2017-07-28 08:25] VITALS: BP 108/76
[2017-07-28] MEDS: FUROSEMIDE 40 MG TABLET PO SCH (08:26)
[2017-07-28] MEDS: LACTULOSE 20 GM/30 ML UDC PO SCH ×3 (08:26→21:52)
[2017-07-28] MEDS: ZINC SULFATE 220 MG CAPSULE PO SCH ×3 (08:26→16:40)
[2017-07-28] MEDS: RIFAXIMIN 550 MG TABLET PO SCH ×2 (08:26→21:52)
[2017-07-28] MEDS: SPIRONOLACTONE 25 MG TABLET PO SCH ×2 (08:27→21:52)
[2017-07-28] MEDS: OXYcodone IR 5MG TABLET PO PRN ×3 (12:38→22:05)
[2017-07-28 13:20] VITALS: BP 96/84
[2017-07-28] MEDS: MORPHINE SULFATE 4 MG/ML, 1ML IVPush PRN ×2 (14:27→15:08)
[2017-07-28 20:09] VITALS: BP 125/84
[2017-07-28] MEDS: CEFTRIAXONE 2 GM in DEXTROSE 5% 50 ML IV SCH (21:53)
[2017-07-29 03:08] VITALS: BP 114/79
[2017-07-29] MEDS: OXYcodone IR 5MG TABLET PO PRN ×5 (03:54→22:34)
[2017-07-29 06:05] LABS: INTERNATIONAL NORMALIZED RATIO 1.45 (0.93-1.1)
[2017-07-29 06:10] LABS: ALBUMIN 2.3 g/dL (3.4-5.0); ANION GAP 7 mmol/L (5-15); CALCIUM 7.3 mg/dL (8.5-10.1); CHLORIDE 91 mmol/L (98-107)
[2017-07-29 06:12] LABS: MEAN CORPUSCULAR HEMOGLOBIN 26.3 pg (27.5-34.5); MEAN CORPUSCULAR HGB CONC 33.2 g/dL (33.2-36.2); MEAN CORPUSCULAR VOLUME 79.3 fL (81-97); MEAN PLATELET VOLUME 9.8 fL (7.4-10.4); PLATELET COUNT 66 x10^3/uL (130-400); RED BLOOD COUNT 5.07 x10^6/uL (4.38-5.82); RED CELL DISTRIBUTION WIDTH 19.7 % (9.4-14.8)
[2017-07-29 06:14] LABS: ALANINE AMINOTRANSFERASE 61 U/L (12-78); ALKALINE PHOSPHATASE 136 U/L (45-117); BILIRUBIN,TOTAL 1.8 mg/dL (0.2-1.0); TOTAL PROTEIN 6.2 g/dL (6.4-8.2)
[2017-07-29 06:39] LABS: BASOPHILS % (AUTO) 0 % (0-1); EOSINOPHILS # (AUTO) 0.52 x10^3/uL (0-0.4); EOSINOPHILS % (AUTO) 7 % (1-7); LYMPHOCYTES % (AUTO) 9 % (22-44); MD SCAN; MONOCYTES # (AUTO) 1.19 x10^3/uL (0.2-0.8); MONOCYTES % (AUTO) 15 % (2-9); NEUTROPHILS % (AUTO) 69 % (42-75)
[2017-07-29 08:46] VITALS: BP 110/76
[2017-07-29] MEDS: LACTULOSE 20 GM/30 ML UDC PO SCH ×3 (08:47→20:11)
[2017-07-29] MEDS: RIFAXIMIN 550 MG TABLET PO SCH ×2 (08:48→20:11)
[2017-07-29] MEDS: ZINC SULFATE 220 MG CAPSULE PO SCH ×3 (08:48→17:45)
[2017-07-29 14:42] VITALS: BP 108/89
[2017-07-29 15:20] LABS: ANION GAP 5 mmol/L (5-15); CALCIUM 7.6 mg/dL (8.5-10.1); CHLORIDE 90 mmol/L (98-107); CREATININE 0.94 mg/dL (0.7-1.3)
[2017-07-29 20:11] VITALS: BP 116/76
[2017-07-29] MEDS: CEFTRIAXONE 2 GM in DEXTROSE 5% 50 ML IV SCH (22:14)
[2017-07-30 02:21] VITALS: BP 122/78
[2017-07-30] MEDS: OXYcodone IR 5MG TABLET PO PRN ×4 (05:58→21:13)
[2017-07-30] MEDS: ZINC SULFATE 220 MG CAPSULE PO SCH ×3 (08:23→16:26)
[2017-07-30] MEDS: LACTULOSE 20 GM/30 ML UDC PO SCH ×3 (08:25→21:13)
[2017-07-30] MEDS: RIFAXIMIN 550 MG TABLET PO SCH ×2 (08:25→21:13)
[2017-07-30 08:49] VITALS: BP 120/77
[2017-07-30] MEDS: ONDANSETRON 2MG/ML, 2ML IVPush PRN (10:50)
[2017-07-30 12:26] VITALS: BP 121/79
[2017-07-30 19:17] VITALS: BP 110/74
[2017-07-30] MEDS: CEFTRIAXONE 2 GM in DEXTROSE 5% 50 ML IV SCH (21:16)
[2017-07-31 00:45] VITALS: BP 115/78
[2017-07-31 05:30] LABS: INTERNATIONAL NORMALIZED RATIO 1.39 (0.93-1.1); PROTHROMBIN TIME 14.4 Seconds (9.6-11.5)
[2017-07-31 05:36] LABS: ALANINE AMINOTRANSFERASE 55 U/L (12-78); ALBUMIN 2.1 g/dL (3.4-5.0); ANION GAP 8 mmol/L (5-15); CALCIUM 7.2 mg/dL (8.5-10.1); CHLORIDE 87 mmol/L (98-107); CREATININE 0.78 mg/dL (0.7-1.3)
[2017-07-31 05:38] LABS: ALKALINE PHOSPHATASE 124 U/L (45-117); BILIRUBIN,TOTAL 1.5 mg/dL (0.2-1.0); TOTAL PROTEIN 6.1 g/dL (6.4-8.2)
[2017-07-31 05:44] LABS: MEAN CORPUSCULAR HEMOGLOBIN 26.5 pg (27.5-34.5); MEAN CORPUSCULAR HGB CONC 33.4 g/dL (33.2-36.2); MEAN CORPUSCULAR VOLUME 79.3 fL (81-97); RED BLOOD COUNT 4.89 x10^6/uL (4.38-5.82); RED CELL DISTRIBUTION WIDTH 19.4 % (9.4-14.8)
[2017-07-31] MEDS: OXYcodone IR 5MG TABLET PO PRN ×3 (05:59→20:29)
[2017-07-31 06:19] LABS: BASOPHILS # (AUTO) 0.07 x10^3/uL (0-0.1); BASOPHILS % (AUTO) 1 % (0-1); EOSINOPHILS # (AUTO) 0.42 x10^3/uL (0-0.4); EOSINOPHILS % (AUTO) 7 % (1-7); LYMPHOCYTES # (AUTO) 0.69 x10^3/uL (1-3.4); LYMPHOCYTES % (AUTO) 11 % (22-44); MD SCAN; MONOCYTES # (AUTO) 1.08 x10^3/uL (0.2-0.8); MONOCYTES % (AUTO) 18 % (2-9); NEUTROPHILS # (AUTO) 3.79 x10^3/uL (1.8-6.8); NEUTROPHILS % (AUTO) 63 % (42-75); PLATELET COUNT 66 x10^3/uL (130-400)
[2017-07-31] MEDS: LACTULOSE 20 GM/30 ML UDC PO SCH ×3 (08:35→20:29)
[2017-07-31] MEDS: ZINC SULFATE 220 MG CAPSULE PO SCH ×3 (08:35→17:03)
[2017-07-31] MEDS: RIFAXIMIN 550 MG TABLET PO SCH ×2 (08:35→20:29)
[2017-07-31 12:50] VITALS: BP 116/83
[2017-07-31] MEDS ORDERED: LIDOCAINE 2%, 10ML ONE (15:19)
[2017-07-31 20:28] VITALS: BP 102/62
[2017-08-01 02:21] VITALS: BP 118/67
[2017-08-01 05:21] LABS: ANION GAP 4 mmol/L (5-15); CALCIUM 7.3 mg/dL (8.5-10.1); CHLORIDE 90 mmol/L (98-107)
[2017-08-01 05:24] LABS: CREATININE 0.71 mg/dL (0.7-1.3)
[2017-08-01] MEDS: OXYcodone IR 5MG TABLET PO PRN ×2 (05:42→12:01)
[2017-08-01 06:58] VITALS: BP 101/69
[2017-08-01] MEDS: LACTULOSE 20 GM/30 ML UDC PO SCH (07:40)
[2017-08-01] MEDS: ZINC SULFATE 220 MG CAPSULE PO SCH ×2 (07:40→12:01)
[2017-08-01] MEDS: RIFAXIMIN 550 MG TABLET PO SCH (07:40)
[2017-08-01] MEDS ORDERED: SODIUM CHLORIDE 1 GM TABLET PO SCH (09:00)
[2017-08-01] MEDS ORDERED: TRIAMCINOLONE CRM 0.1%, 15GM TP SCH (09:00)
[2017-08-01] MEDS ORDERED: ERGO500017 PO (11:01)
[2017-08-01] MEDS ORDERED: TRIA15CR3 TP (11:01)
[2017-08-01] MEDS ORDERED: ZINC220C5 PO (11:01)
[2017-08-01] MEDS ORDERED: SODI1TAB PO (11:01)
[2017-08-01] MEDS ORDERED: OXYC5TAB3 PO (11:01)
[2017-08-01] MEDS ORDERED: ALPR1TAB2 PO (11:41)
[2017-08-01 13:10] VITALS: BP 106/75
== END 2017-08-01 13:15 | DRG 441 ==
LOC: ED 21:13 → EDIP 21:58 → 4NOR 22:53
PROVIDERS: ADMIT Internal Medicine; ATTEND Internal Medicine
PROC: 0W9G3ZZ Drainage of Peritoneal Cavity, Percutaneous Approach (ICD-10-PCS; principal; 2017-07-31)
DX: K72.90 Hepatic failure, unspecified without coma (principal); E43 Unspecified severe protein-calorie malnutrition; J96.10 Chronic respiratory failure, unspecified whether with hypoxia or hypercapnia; D69.6 Thrombocytopenia, unspecified; E87.1 Hypo-osmolality and hyponatremia; K76.6 Portal hypertension; E11.65 Type 2 diabetes mellitus with hyperglycemia; Z99.81 Dependence on supplemental oxygen; Z66 Do not resuscitate; D63.8 Anemia in other chronic diseases classified elsewhere; I86.4 Gastric varices; B19.20 Unspecified viral hepatitis C without hepatic coma; F15.90 Other stimulant use, unspecified, uncomplicated; F10.20 Alcohol dependence, uncomplicated; E86.0 Dehydration; F12.90 Cannabis use, unspecified, uncomplicated; E66.9 Obesity, unspecified; I10 Essential (primary) hypertension; K21.9 Gastro-esophageal reflux disease without esophagitis; K59.00 Constipation, unspecified; K70.31 Alcoholic cirrhosis of liver with ascites; N43.3 Hydrocele, unspecified; E55.9 Vitamin D deficiency, unspecified; Z86.14 Personal history of Methicillin resistant Staphylococcus aureus infection; Z68.33 Body mass index [BMI] 33.0-33.9, adult; Z80.41 Family history of malignant neoplasm of ovary; Z82.49 Family history of ischemic heart disease and other diseases of the circulatory system; Z83.3 Family history of diabetes mellitus; Z88.8 Allergy status to other drugs, medicaments and biological substances
CPT/HCPCS: 36415; 49083; 71045; 74018; 80048; 80053; 80061; 81003; 82042; 82140; 82728; 83540; 83550; 83615; 83690; 83735; 83880; 84100; 84439; 84443; 84466; 84484; 85025; 85610; 85730; 87040; 87070; 87205; 89051; 93005; J0696; J2405; J3490; P9047; J7030